=== PATIENT | female | born 1990 | race Caucasian/White ===

== ENCOUNTER 2020-02-09 11:49 | Emergency (ER) | payer OTHER, MEDICAID ==
[2020-02-09 12:15] VITALS: BP 132/91
--- NOTE | 2020-02-09 12:52 | XRAY Report ---
PROCEDURE: Ankle 3 View LT INDICATIONS: swelling TECHNIQUE: 3 views of the ankle were acquired. COMPARISON: None FINDINGS: Bones: No fractures or dislocations. Ankle mortise is normally aligned. No suspicious bony lesions . Soft tissues: No tibiotalar joint effusion. Achilles tendon appears normal. Mild ankle soft tissue swelling is seen. IMPRESSION: No acute ankle fracture or dislocation. Mild ankle soft tissue swelling. Ankle mortise i s congruent. Reviewed by: Francesco Oseguera MD on 02/09/2020 12:50 PM PDT Approved by: Francesco Oseguera MD on 02/09/2020 12:50 PM PDT Station ID: [id number]
--- NOTE | 2020-02-09 14:21 | ED Physician Documentation ---
PD HPI LOWER EXT INJURY - Stated complaint Stated Complaint: LT FOOT INJ - Chief complaint Chief Complaint: Ext Problem - History obtained from History obtained from: Patient - History of Present Illness PD HPI LOW EXT INJURY LOCATION: Left, Foot Type of injury: Twist Timing - onset: How many days ago (4) Timing - details: Abrupt onset Improved by: Rest, Immobilization Worsened by: Moving, Palpating Associated symptoms: No: Weakness, Numbness, Tingling, Swelling Similar symptoms before: Has not had sx before - Additional information Additional information: 29-year-old female presents the emergency department with chief complaint of acute left foot pain. Pain began 4 days ago. She reports that she was walking was turning a corner and felt her foot twist.Since then she has had pain mostly on the lateral edge of the foot. She has no swelling deformity or ecchymosis. No history of previous injury. Patient reports the pain feels better when she is wearing a shoe because she feels it compresses the injury. But is certainly worse after a day of walking. PD PAST MEDICAL HISTORY - Past Medical History Past Medical History: No - Past Surgical History Past Surgical History: No - Present Medications Home Medications: Ambulatory Orders Medication Instructions Recorded Confirmed Ibuprofen [Ibu] 600 mg PO Q8HR PRN #20 tablet 02/09/20 - Allergies Allergies/Adverse Reactions: Allergies Allergy/AdvReac Type Severity Reaction Status Date / Time No Known Drug Allergies Allergy Verified 02/09/20 12:15 - Social History Does the pt smoke?: No Smoking Status: Never smoker Does the pt drink ETOH?: Yes Does the pt have substance abuse?: No - Immunizations Immunizations are current?: Yes - POLST Patient has POLST: No PD ED PE NORMAL - General General: Alert and oriented X 3, No acute distress, Well developed/nourished - Extremities Extremities: No deformity, Normal ROM s pain, Other (Tenderness on the left lateral foot along the fourth and fifth metatarsals. No pain at the base of the fifth metatarsal. Full range of motion of ankle in all planes. Normal flexion extension inversion and eversion of foot and ankle.) - Neuro Neuro: Alert and oriented X 3, No motor deficit, No sensory deficit Results - Vitals Vitals: Vital Signs - 24 hr 02/09/20 12:12 Temperature 36.3 C L Heart Rate 97 Respiratory 18 Rate Blood Pressure 132/91 H O2 Saturation 100 Oxygen O2 Source Room air - Rads (name of study) left ankle: Radiology: Final report received (No acute ankle fracture dislocation. Mild soft tissue swelling, ankle mortise is congruent) left foot Radiology: Final report received (No acute fracture dislocation.) PD MEDICAL DECISION MAKING - ED course Complexity details: reviewed results, re-evaluated patient, d/w patient ED course: 21-year-old female presents the emergency department with chief complaint of left foot pain after a twisting injury about 4 days ago. She is able to bear partial weight but pain is worse through the day as she walks. - X-ray of both the ankle and the foot shows no acute pathology As patient reports that pain is better when she is wearing a tennis shoe, I suspected that she most likely has a sprain. - Give patient an Jose Elias wrap, walking boot as well as crutches to help with ambulation. Recommend NSAID medication. If pain and ability to bear weight not markedly better after 7 days she should return for repeat imaging to rule out occult fracture. Departure - Departure Disposition: 01 Home, Self Care Clinical Impression: Left foot pain Condition: Stable Instructions: ED Sprain Foot Follow-Up: Yanick Sterling MD [Primary Care Provider] - Prescriptions: Ibuprofen [Ibu] 600 mg PO Q8HR PRN #20 tablet PRN Reason: Pain Comments: Crystal, the x-ray of your foot and ankle do not show any broken bones. I suspect that what you have is most likely a sprain. Please wear the Jose Elias wrap when up out of bed. Use the walking boot to help protect your foot. If your pain is not markedly better in the next 7 to 10 days then please return to the emergency department or see your primary care physician for repeat imaging. In some cases subtle fractures are missed on the first x-rays.
--- NOTE | 2020-02-09 14:46 | XRAY Report ---
PROCEDURE: Foot 3 View LT INDICATIONS: pain in the 4/5 metatarsals TECHNIQUE: 3 views of the foot were acquired. COMPARISON: Concurrent x-ray of the left ankle. FINDINGS: Bones: No fractures or dislocations. No suspicious bony lesions. Soft tissues: No tibiotalar joint effusion. Achilles tendon appears normal. IMPRESSION: 1. No fracture or dislocation. Reviewed by: Trevin Marley MD on 02/09/2020 2:45 PM PDT Approved by: Trevin Marley MD on 02/09/2020 2:45 PM PDT Station ID: [id number]
== END 2020-02-09 15:51 | disposition home or self-care (01) ==
LOC: ED 11:49
DX: M79.672 Pain in left foot (principal)
CPT/HCPCS: 99281; 99284

== ENCOUNTER 2020-07-23 09:07 | Emergency (ER) | payer MEDICAID ==
[2020-07-23] MEDS ORDERED: KETOROLAC 30 MG/ML VIAL IVP STA (09:18)
[2020-07-23] MEDS ORDERED: SODIUM CHLORIDE 0.9% 1,000 ML IV STA (09:18)
--- NOTE | 2020-07-23 09:20 | ED Physician Documentation ---
PD HPI HEADACHE - Stated complaint Stated Complaint: CHEST PX, HEADACHE - History obtained from History obtained from: Patient - Additional information Additional information: She has a history of headaches but over the last 3 days has had a constant atypical headache for her in the left religious that is sharp and worse if she bends forward. Starting today it is associated with sharp central nonradiating chest pain, mild shortness of breath, and left-sided neck pain that does not change with rotation or flexion. She denies fever, cough, leg pain or pedal edema. She is not on control. Review of Systems Ten Systems: 10 systems reviewed and negative Constitutional: denies: Fever, Chills Nose: denies: Rhinorrhea / runny nose, Congestion Throat: denies: Sore throat Cardiac: reports: Chest pain / pressure. denies: Palpitations Respiratory: reports: Dyspnea. denies: Cough GI: denies: Abdominal Pain, Nausea, Vomiting PD PAST MEDICAL HISTORY - Past Surgical History Past Surgical History: No - Present Medications Home Medications: Ambulatory Orders Medication Instructions Recorded Confirmed HYDROcod/ACETAM 5/325 [Libby 5/325] 1 - 2 tab PO Q6H PRN #15 tablet 07/23/20 acetaZOLAMIDE [Acetazolamide] 125 mg PO BID #60 tablet 07/23/20 - Allergies Allergies/Adverse Reactions: Allergies Allergy/AdvReac Type Severity Reaction Status Date / Time No Known Drug Allergies Allergy Verified 07/23/20 09:16 - Social History Does the pt smoke?: No Smoking Status: Never smoker Does the pt drink ETOH?: Yes Does the pt have substance abuse?: No - Immunizations Immunizations are current?: Yes - POLST Patient has POLST: No PD ED PE NORMAL - Vitals Vital signs reviewed: Yes - General General: Alert and oriented X 3, No acute distress - HEENT HEENT: PERRL, EOMI, Ears normal, Moist mucous membranes, Pharynx benign - Neck Neck: Supple, no meningeal sign, No bony TTP - Cardiac Cardiac: RRR, No murmur - Respiratory Respiratory: No respiratory distress, Clear bilaterally - Abdomen Abdomen: Normal bowel sounds, Soft, Non tender - Back Back: No CVA TTP, No spinal TTP - Derm Derm: Normal color, Warm and dry - Extremities Extremities: No edema, No calf tenderness / cord - Neuro Neuro: Alert and oriented X 3, Normal speech Eye Opening: Spontaneous Motor: Obeys Commands Verbal: Oriented GCS Score: 15 Results - Vitals Vitals: Vital Signs - 24 hr 07/23/20 07/23/20 07/23/20 09:16 09:39 10:26 Temperature 37.5 C Heart Rate 105 H 91 75 Respiratory 19 16 14 Rate Blood Pressure 127/91 H 121/83 H 113/81 H O2 Saturation 100 99 100 07/23/20 07/23/20 11:51 13:12 Temperature 37 C 37 C Heart Rate 74 78 Respiratory 14 16 Rate Blood Pressure 122/80 125/91 H O2 Saturation 100 100 Oxygen O2 Source Room air - EKG (time done) 0917 Rate: Rate (enter#) (92) Rhythm: NSR [place]: Normal Intervals: Normal [place] QRS: Normal Ischemia: Normal ST segments Computer interpretation: Agree with computer - Labs Labs: Microbiology 07/23/20 12:50 CSF Culture - Preliminary Cerebral Spinal Fluid Laboratory Tests 07/23/20 07/23/20 07/23/20 09:30 09:30 09:30 WBC 9.8 RBC 5.07 Hgb 15.6 Hct 46.5 MCV 91.7 MCH 30.8 MCHC 33.5 RDW 12.6 Plt Count 241 MPV 10.0 Neut # (Auto) 6.6 Lymph # (Auto) 2.2 Cloud # (Auto) 0.6 Eos # (Auto) 0.3 Baso # (Auto) 0.1 Absolute Nucleated RBC 0.00 Nucleated RBC % 0.0 D-Dimer 228.4 Sodium 140 Potassium 4.0 Chloride 105 Carbon Dioxide 24 Anion Gap 11.0 BUN 18 Creatinine 0.9 Estimated GFR (MDRD) 75 L Glucose 102 H Calcium 9.2 Total Bilirubin 0.6 AST 16 ALT 14 Alkaline Phosphatase 93 Troponin I High Sens Total Protein 7.5 Albumin 4.2 Globulin 3.3 Albumin/Globulin Ratio 1.3 Lipase 27 Urine Color Urine Clarity Urine pH Ur Specific [place] Urine Protein Urine Glucose (UA) Urine Ketones Urine Occult Blood Urine Nitrite Urine Bilirubin Urine Urobilinogen Ur Leukocyte Esterase Ur Microscopic Review Urine Culture Comments Urine HCG, Qual CSF Color CSF Clarity Xanthrochromic CSF WBC CSF RBC CSF Cell Count Tube # CSF Glucose CSF Total Protein 07/23/20 07/23/20 07/23/20 09:30 09:30 12:50 WBC RBC Hgb Hct MCV MCH MCHC RDW Plt Count MPV Neut # (Auto) Lymph # (Auto) Cloud # (Auto) Eos # (Auto) Baso # (Auto) Absolute Nucleated RBC Nucleated RBC % D-Dimer Sodium Potassium Chloride Carbon Dioxide Anion Gap BUN Creatinine Estimated GFR (MDRD) Glucose Calcium Total Bilirubin AST ALT Alkaline Phosphatase Troponin I High Sens < 2.3 L Total Protein Albumin Globulin Albumin/Globulin Ratio Lipase Urine Color YELLOW Urine Clarity CLEAR Urine pH 6.0 Ur Specific [place] 1.025 Urine Protein NEGATIVE Urine Glucose (UA) NEGATIVE Urine Ketones NEGATIVE Urine Occult Blood NEGATIVE Urine Nitrite NEGATIVE Urine Bilirubin NEGATIVE Urine Urobilinogen 0.2 (NORMAL) Ur Leukocyte Esterase NEGATIVE Ur Microscopic Review NOT INDICATED Urine Culture Comments NOT INDICATED Urine HCG, Qual NEGATIVE CSF Color CSF Clarity Xanthrochromic CSF WBC CSF RBC CSF Cell Count Tube # CSF Glucose CSF Total Protein 27 07/23/20 12:50 WBC RBC Hgb Hct MCV MCH MCHC RDW Plt Count MPV Neut # (Auto) Lymph # (Auto) Cloud # (Auto) Eos # (Auto) Baso # (Auto) Absolute Nucleated RBC Nucleated RBC % D-Dimer Sodium Potassium Chloride Carbon Dioxide Anion Gap BUN Creatinine Estimated GFR (MDRD) Glucose Calcium Total Bilirubin AST ALT Alkaline Phosphatase Troponin I High Sens Total Protein Albumin Globulin Albumin/Globulin Ratio Lipase Urine Color Urine Clarity Urine pH Ur Specific [place] Urine Protein Urine Glucose (UA) Urine Ketones Urine Occult Blood Urine Nitrite Urine Bilirubin Urine Urobilinogen Ur Leukocyte Esterase Ur Microscopic Review Urine Culture Comments Urine HCG, Qual CSF Color COLORLESS CSF Clarity CLEAR Xanthrochromic ABSENT CSF WBC 0 CSF RBC 8 H CSF Cell Count Tube # CSF TUBE# 3 CSF Glucose 56 CSF Total Protein Procedures - Lumbar Puncture Position: Laying left side Location: L3-L4 Anesthesia: Local lidocaine CSF: Clear Pressures: Opening Pressure (26 cm h2O) Other: Sterile prep and drape, Patient tolerated well PD MEDICAL DECISION MAKING - ED course ED course: 29-year-old woman with headache syndrome, atypical for her, the association with bending forward and her body habitus would be suggestive of intracranial hypertension. That said the differential diagnosis would also include migraine syndrome, tension headache. Now the association with chest pain and trouble breathing would be concerning for PE especially in the setting of some tachycardia at rest. Although she has no other risk factors for that. D-dimer subsequently negative, will image the head and neck. Consider LP based on results. CTA of head and neck were negative. I did do an LP, the opening pressure was 26. Case discussed by phone with Dr. Miller who feels it is unlikely to be intracranial hypertension but feels like a low-dose of Diamox, 125 mg twice daily and follow-up with ophthalmology as appropriate. Departure - Departure Disposition: 01 Home, Self Care Clinical Impression: Headache Qualifiers: Headache type: unspecified Headache chronicity pattern: acute headache Intractability: not intractable Qualified Code(s): R51.9 - Headache, unspecified Condition: Good Record reviewed to determine appropriate education?: Yes Instructions: ED Cephalgia Unspecified Follow-Up: Barrie Ojeda MD [Provider Admit Priv/Credential] - Tanja Cha MD [Physician No Access] - Prescriptions: acetaZOLAMIDE [Acetazolamide] 125 mg PO BID #60 tablet HYDROcod/ACETAM 5/325 [Libby 5/325] 1 - 2 tab PO Q6H PRN #15 tablet PRN Reason: Pain Comments: Return for new or worsening symptoms. Follow-up with the supply cataloguer for dilated funduscopic examination, if they feel that you have papilledema they can refer you to the neurologist. Your opening pressure today was 26 on your lumbar puncture which was slightly high.
[2020-07-23 09:41] LABS: BILIRUBIN,URINE NEGATIVE (NEGATIVE); GLUCOSE, URINE (UA) NEGATIVE (NEGATIVE); KETONES,URINE (UA) NEGATIVE (NEGATIVE); LEUKOCYTE ESTERASE, URINE NEGATIVE (NEGATIVE); NITRITE,URINE NEGATIVE (NEGATIVE); OCCULT BLOOD,URINE NEGATIVE (NEGATIVE); PROTEIN,URINE NEGATIVE (NEGATIVE); UROBILINOGEN,URINE 0.2 (NORMAL) E.U./dL (NORMAL)
[2020-07-23 09:43] LABS: CLARITY,URINE CLEAR (CLEAR); HCG UR QUAL NEGATIVE
[2020-07-23 09:52] LABS: BASOPHILS # (AUTO) 0.1 10^3/uL (0.0-0.1); BASOPHILS % (AUTO) 0.6 %; EOSINOPHILS # (AUTO) 0.3 10^3/uL (0.0-0.7); EOSINOPHILS % (AUTO) 2.6 %; HGB - HEMOGLOBIN 15.6 g/dL (12.0-16.0); LYMPHOCYTES # (AUTO) 2.2 10^3/uL (1.5-3.5); LYMPHOCYTES % (AUTO) 22.2 %; MEAN CORPUSCULAR HEMOGLOBIN 30.8 pg (27.0-31.0); MEAN CORPUSCULAR HGB CONC 33.5 g/dL (32.0-36.0); MEAN CORPUSCULAR VOLUME 91.7 fL (81.0-99.0); MONOCYTES # (AUTO) 0.6 10^3/uL (0.0-1.0); MONOCYTES % (AUTO) 5.6 %; NEUTROPHILS # (AUTO) 6.6 10^3/uL (1.5-6.6); NEUTROPHILS % (AUTO) 67.8 %; PLT - PLATELET COUNT 241 10^3/uL (130-450); RED BLOOD COUNT 5.07 10^6/uL (4.20-5.40); RED CELL DISTRIBUTION WIDTH 12.6 % (12.0-15.0); WHITE BLOOD COUNT 9.8 x10^3/uL (4.8-10.8)
[2020-07-23] MEDS ORDERED: HYDROmorphone 1 MG/ML CARPUJECT IVP STA (10:20)
[2020-07-23] MEDS ORDERED: IOVERSOL 320 100 ML VIAL IVP ONE ×2 (10:28→15:18)
[2020-07-23 11:00] LABS: ALBUMIN 4.2 g/dL (3.2-5.5); ALBUMIN/GLOBULIN RATIO 1.3 (1.0-2.2); BILIRUBIN,TOTAL 0.6 mg/dL (0.2-1.0); CALCIUM 9.2 mg/dL (8.5-10.3); CREATININE 0.9 mg/dL (0.4-1.0); TOTAL PROTEIN 7.5 g/dL (6.7-8.2)
[2020-07-23] MEDS ORDERED: ONDANSETRON 4 MG/2 ML VIAL IVP STA (12:06)
--- NOTE | 2020-07-23 12:29 | CT Report ---
PROCEDURE: ANGIO HEAD W/WO INDICATIONS: Headache and left neck pain CONTRAST: IV CONTRAST: Optiray 320 ml: 80 PO CONTRAST: *NO PO CONTRAST TECHNIQUE: Precontrast 4.5 mm thick angled axial sections acquired from the foramen magnum to the vertex. Afte r the administration of intravenous contrast, 1 mm thick sections acquired through the [place] of [place] is. Postcontrast 4.5 mm thick sections then re-acquired from the foramen magnum to the vertex. 3-di mensional gfanmon-ztrkddlqz-lgvfprixhj (MIP) and/or volume rendering reformats were acquired of the c entral intracranial vasculature. For radiation dose reduction, the following was used: automated ex posure control, adjustment of mA and/or kV according to patient size. COMPARISON: None FINDINGS: Image quality: Excellent. Anterior circulation: Intracranial internal carotid arteries are normal in size and flow. The flow within the paired anterior cerebral arteries is normal and symmetric. The flow within the middle cer ebral arteries is normal and symmetric. The anterior communicating artery is seen. No aneurysms are seen. Posterior circulation: Visualized portions of the vertebral arteries demonstrate normal caliber, and join to form a normal appearing basilar artery. Flow within the posterior cerebral arteries is norm al and symmetric. No aneurysms are seen. CSF spaces: Ventricles are normal in size and shape. Basal cisterns are patent. No extra-axial flu id collections. Brain: No midline shift. No intracranial bleeds or masses. Ljoa-white matter interface appears int act. Skull and face: Calvarium and facial bones appear intact, without suspicious lesions. Sinuses: Visualized sinuses and mastoids are clear. IMPRESSION: No acute intracranial finding. No intracranial aneurysm, vascular malformation, or hemodynamically significant arterial stenosis. Reviewed by: Ghassan Victoria MD on 07/23/2020 11:27 AM [facility] Approved by: Ghassan Victoria MD on 07/23/2020 11:27 AM [facility] Station ID: [id number]
--- NOTE | 2020-07-23 12:32 | CT Report ---
PROCEDURE: ANGIO NECK W INDICATIONS: Head/L neck pain CONTRAST: IV CONTRAST: Optiray 320 ml: 80 PO CONTRAST: *NO PO CONTRAST TECHNIQUE: After the administration of intravenous contrast, 1.5 mm axial sections acquired from the aortic arch to the [place] of [place]. Coronal 3-D maximum intensity projection (MIP) and/or volume rendering ref ormats were then performed. For radiation dose reduction, the following was used: automated exposur e control, adjustment of mA and/or kV according to patient size. COMPARISON: None. FINDINGS: Image quality: Excellent. Carotid system: The great vessels demonstrate a conventional anatomy as they arise from the aortic a [facility]. The origins of the common carotid arteries appear patent. The common carotid arteries demonstr ate normal calibers and courses. The bifurcation regions appear normal bilaterally. The internal ca rotid arteries demonstrate normal caliber and course. Posterior circulation: The origins of the vertebral arteries appear patent. The more superior porti ons of the vertebral arteries demonstrate normal course and caliber. They join to form a normal appe aring basilar artery. Soft tissues: Visualized neck soft tissues demonstrate no suspicious abnormalities. The thyroid gla nd is normal in size. Bones: No suspicious bony lesions. Visualized cervical spine appears normally aligned. IMPRESSION: No significant abnormality demonstrated. The estimate of stenosis included in the report of the imaging study was calculated using the NASCET method Reviewed by: Ghassan Victoria MD on 07/23/2020 11:30 AM [facility] Approved by: Ghassan Victoria MD on 07/23/2020 11:30 AM [facility] Station ID: [id number]
[2020-07-23 13:27] LABS: CSF - GLUCOSE 56 mg/dL (45-70)
[2020-07-23 13:32] LABS: CLARITY,CSF CLEAR (CLEAR); COLOR,CSF COLORLESS (COLORLESS); CSF TUBE # CSF TUBE# 3; CSF XANTHOCHROMIA ABSENT (ABSENT); RED BLOOD CELL,CSF 8 /mm^3 (0-1); WHITE BLOOD CELL,CSF 0 /mm^3 (0-5)
[2020-07-23 13:55] VITALS: BP 113/76
== END 2020-07-23 14:08 | disposition home or self-care (01) ==
LOC: ED 09:07
DX: G44.89 Other headache syndrome (principal); R07.9 Chest pain, unspecified; R06.02 Shortness of breath; M54.2 Cervicalgia
CPT/HCPCS: 36415; 62270; 70496; 70498; 80053; 81003; 81025; 82945; 83690; 84157; 84484; 85025; 85379; 87070; 87205; 89051; 93005; 96374; 96375; 99284; 99285; J1170; Q9967; 81001; 87086

== ENCOUNTER 2020-09-11 09:20 | Emergency (ER) | payer MEDICAID ==
--- NOTE | 2020-09-11 09:26 | ED Physician Documentation ---
PD HPI ABD PAIN - Stated complaint Stated Complaint: ABD PX - History obtained from History obtained from: Patient - History of Present Illness Timing - onset: Last night Timing - duration: Days (1) Timing - details: Gradual onset, Still present Quality: Cramping, Aching, Pain Location: RLQ, Suprapubic, LLQ (subsequently) Radiation: Lower back. No: Right flank Improved by: Laying still Worsened by: Moving, Position (lying flat), Palpation (lower abd) Associated symptoms: Nausea, Diarrhea (soft stool movement this morning.), Loss of appetite. No: Fever, Vomiting, Dysuria, Dizzy Similar symptoms before: Has not had sx before Recently seen: Not recently seen Review of Systems Constitutional: denies: Fever, Chills Nose: denies: Rhinorrhea / runny nose, Congestion Throat: denies: Sore throat Respiratory: denies: Cough GI: reports: Abdominal Pain, Nausea. denies: Vomiting, Constipation, Bloody / black stool : denies: Dysuria, Frequency, Discharge Skin: denies: Rash, Lesions Neurologic: denies: Generalized weakness, Near syncope, Headache PD PAST MEDICAL HISTORY - Past Medical History Cardiovascular: Other Respiratory: None Neuro: Headaches Endocrine/Autoimmune: None GI: None DIESEL MECHANIC APPRENTICE: None : None HEENT: None Psych: None Musculoskeletal: None Derm: None - Past Surgical History Past Surgical History: No General: Cholecystectomy - Present Medications Home Medications: Ambulatory Orders Medication Instructions Recorded Confirmed Ibuprofen [Motrin] 600 mg PO TID PRN #25 tab 09/11/20 Ondansetron Odt [Zofran] 4 mg TL Q6H PRN #10 tablet 09/11/20 Oxycodone HCl/Acetaminophen 1 each PO Q6H PRN #14 tablet 09/11/20 [Percocet 5-325 mg Tablet] - Allergies Allergies/Adverse Reactions: Allergies Allergy/AdvReac Type Severity Reaction Status Date / Time No Known Drug Allergies Allergy Verified 09/11/20 09:30 - Social History Does the pt smoke?: No Smoking Status: Never smoker Does the pt drink ETOH?: Yes Does the pt have substance abuse?: No - Immunizations Immunizations are current?: Yes - POLST Patient has POLST: No PD ED PE NORMAL - Vitals Vital signs reviewed: Yes - General General: Alert and oriented X 3, Well developed/nourished, Other (appears in pain/ very uncomfortable. ) - Neck Neck: Supple, no meningeal sign, No adenopathy - Cardiac Cardiac: RRR, No murmur - Respiratory Respiratory: Clear bilaterally - Abdomen Abdomen: Soft, Non distended, No organomegaly, Other (significant RLQ and suprapubic tenderness with guarding and percussion tenderness. referred tenderness from LLQ to right. Some percussion tender LLQ as well. Upper abd not tender. ) - Female Female : Deferred - Rectal Rectal: Deferred - Back Back: No CVA TTP - Derm Derm: Normal color, Warm and dry - Extremities Extremities: No tenderness to palpate, Normal ROM s pain - Neuro Neuro: Alert and oriented X 3, No motor deficit, Normal speech Results - Vitals Vitals: Vital Signs - 24 hr 09/11/20 09/11/20 09/11/20 09:27 09:48 10:02 Temperature 36.2 C L Heart Rate 93 98 95 Respiratory 18 16 16 Rate Blood Pressure 149/89 H 124/90 H 123/87 H O2 Saturation 99 98 98 09/11/20 09/11/20 09/11/20 11:22 13:18 13:50 Temperature 36.9 C Heart Rate 97 89 85 Respiratory 20 18 16 Rate Blood Pressure 127/93 H 115/73 110/81 H O2 Saturation 100 99 100 Oxygen O2 Source Room air - Labs Labs: Laboratory Tests 09/11/20 09/11/20 09/11/20 09:37 10:00 10:18 WBC 11.6 H RBC 4.86 Hgb 15.0 Hct 44.4 MCV 91.4 MCH 30.9 MCHC 33.8 RDW 12.3 Plt Count 241 MPV 9.5 Neut # (Auto) 7.7 H Lymph # (Auto) 2.5 [place] # (Auto) 0.7 Eos # (Auto) 0.4 Baso # (Auto) 0.1 Absolute Nucleated RBC 0.00 Nucleated RBC % 0.0 Sodium 139 Potassium 4.3 Chloride 105 Carbon Dioxide 23 Anion Gap 11.0 BUN 16 Creatinine 0.9 Estimated GFR (MDRD) 74 L Glucose 102 H Calcium 8.3 L Total Bilirubin 0.3 AST 17 ALT 14 Alkaline Phosphatase 86 Total Protein 6.5 L Albumin 3.4 Globulin 3.1 Albumin/Globulin Ratio 1.1 Lipase 30 Urine Color YELLOW Urine Clarity CLEAR Urine pH 6.5 Ur Specific Steele 1.020 Urine Protein NEGATIVE Urine Glucose (UA) NEGATIVE Urine Ketones NEGATIVE Urine Occult Blood NEGATIVE Urine Nitrite NEGATIVE Urine Bilirubin NEGATIVE Urine Urobilinogen 0.2 (NORMAL) Ur Leukocyte Esterase NEGATIVE Ur Microscopic Review NOT INDICATED Urine Culture Comments NOT INDICATED Urine HCG, Qual NEGATIVE Nasal Adenovirus (PCR) Nasal B. parapertussis DNA (PCR) Nasal Coronavir 229E PCR Nasal Coronavir HKU1 PCR Nasal Coronavir NL63 PCR Nasal Coronavir OC43 PCR Nasal Enterovir/Rhinovir PCR Nasal Influenza B PCR Nasal Influenza A PCR Nasal Parainfluen 1 PCR Nasal Parainfluen 2 PCR Nasal Parainfluen 3 PCR Nasal Parainfluen 4 PCR Nasal RSV (PCR) Nasal B.pertussis DNA PCR Nasal C.pneumoniae (PCR) Jun Human Metapneumo PCR Nasal M.pneumoniae (PCR) Nasal SARS-CoV-2 (PCR) 09/11/20 11:09 WBC RBC Hgb Hct MCV MCH MCHC RDW Plt Count MPV Neut # (Auto) Lymph # (Auto) [place] # (Auto) Eos # (Auto) Baso # (Auto) Absolute Nucleated RBC Nucleated RBC % Sodium Potassium Chloride Carbon Dioxide Anion Gap BUN Creatinine Estimated GFR (MDRD) Glucose Calcium Total Bilirubin AST ALT Alkaline Phosphatase Total Protein Albumin Globulin Albumin/Globulin Ratio Lipase Urine Color Urine Clarity Urine pH Ur Specific Steele Urine Protein Urine Glucose (UA) Urine Ketones Urine Occult Blood Urine Nitrite Urine Bilirubin Urine Urobilinogen Ur Leukocyte Esterase Ur Microscopic Review Urine Culture Comments Urine HCG, Qual Nasal Adenovirus (PCR) NOT DETECTED Nasal B. parapertussis DNA (PCR) NOT DETECTED Nasal Coronavir 229E PCR NOT DETECTED Nasal Coronavir HKU1 PCR NOT DETECTED Nasal Coronavir NL63 PCR NOT DETECTED Nasal Coronavir OC43 PCR NOT DETECTED Nasal Enterovir/Rhinovir PCR NOT DETECTED Nasal Influenza B PCR NOT DETECTED Nasal Influenza A PCR NOT DETECTED Nasal Parainfluen 1 PCR NOT DETECTED Nasal Parainfluen 2 PCR NOT DETECTED Nasal Parainfluen 3 PCR NOT DETECTED Nasal Parainfluen 4 PCR NOT DETECTED Nasal RSV (PCR) NOT DETECTED Nasal B.pertussis DNA PCR NOT DETECTED Nasal C.pneumoniae (PCR) NOT DETECTED Jun Human Metapneumo PCR NOT DETECTED Nasal M.pneumoniae (PCR) NOT DETECTED Nasal SARS-CoV-2 (PCR) NOT DETECTED - Rads (name of study) abd CT Radiology: Prelim report reviewed (normal appendix. 3.5 cm right ovarian cyst with contrast extravasate locally, signifying active bleeding. ), See rad report pelvic U/S Radiology: Prelim report reviewed (ovarian cyst with some free fluid in pelvis and back of uterus. Normal blood flow to the ovary. ), See rad report PD MEDICAL DECISION MAKING - ED course Complexity details: reviewed results (CT showing 3.5 cm right ovarian cyst with contrast extravasation around the ovary. No free fluid/blood noted. ), re- evaluated patient (having peritoneal signs and tenderness lower abd so presume some element of free fluid/blood. Talked with Dr. Jaimes, review consultant, who asks for U/S as well. This showed mild amount free fluid. Called DIESEL MECHANIC APPRENTICE back and is not enough to need surgery. Treat pain and recheck in office/ER.), considered differential (RLQ pain with some local peritoneal signs. Consider appy, ovarian cyst, torsion, kidney stone, UTI, among other things. ), d/w patient ED course: COVID test done in consideration of potential surgery. IV fluids pain meds given with moderate improvement in pain. Repeat doses given. Patient says she is comfortable enough at this point to go home (this is after CT and U/S results and consult with DIESEL MECHANIC APPRENTICE). Departure - Departure Disposition: 01 Home, Self Care Clinical Impression: Hemorrhagic cyst of right ovary, RLQ abdominal pain Condition: Stable Record reviewed to determine appropriate education?: Yes Instructions: ED Cyst Ovarian Follow-Up: Marsha Jaimes MD [Provider Admit Priv/Credential] - Prescriptions: Ibuprofen [Motrin] 600 mg PO TID PRN #25 tab PRN Reason: Pain Oxycodone HCl/Acetaminophen [Percocet 5-325 mg Tablet] 1 each PO Q6H PRN #14 tablet PRN Reason: pain Ondansetron Odt [Zofran] 4 mg TL Q6H PRN #10 tablet PRN Reason: Nausea / Vomiting Comments: Rest at home today. Activity as tolerated tomorrow and thereafter. You do have a cyst on the right ovary that is bleeding a small amount locally. Your pain is coming from the cyst as well as the irritation of the blood in the pelvic cavity. This should taper down and improve in the next day or 2 assuming the bleeding stops as would typically be the case. Use ondansetron if needed for nausea and ibuprofen 3 times a day for pain and inflammation. To that add Tylenol or oxycodone as needed for pain. Recheck if not improved well over the next 1 to 2 days with the LEASING ASSISTANT office or back in the ER. Return to the ER if worsening symptoms or any feeling of lightheadedness, worsening pain, repetitive vomiting or other concerns. Discharge Date/Time: 09/11/20 14:01
[2020-09-11] MEDS ORDERED: HYDROmorphone 1 MG/ML CARPUJECT IVP STA ×3 (09:53→13:15)
[2020-09-11] MEDS ORDERED: ONDANSETRON 4 MG/2 ML VIAL IVP STA (09:53)
[2020-09-11] MEDS ORDERED: SODIUM CHLORIDE 0.9% 1,000 ML IV STA ×2 (09:53→11:08)
[2020-09-11 09:56] LABS: BILIRUBIN,URINE NEGATIVE (NEGATIVE); GLUCOSE, URINE (UA) NEGATIVE (NEGATIVE); KETONES,URINE (UA) NEGATIVE (NEGATIVE); LEUKOCYTE ESTERASE, URINE NEGATIVE (NEGATIVE); NITRITE,URINE NEGATIVE (NEGATIVE); OCCULT BLOOD,URINE NEGATIVE (NEGATIVE); PH,URINE 6.5 PH (5.0-7.5); PROTEIN,URINE NEGATIVE (NEGATIVE); UROBILINOGEN,URINE 0.2 (NORMAL) E.U./dL (NORMAL)
[2020-09-11 09:57] LABS: CLARITY,URINE CLEAR (CLEAR)
[2020-09-11 10:00] LABS: HCG UR QUAL NEGATIVE
[2020-09-11 10:07] LABS: BASOPHILS # (AUTO) 0.1 10^3/uL (0.0-0.1); BASOPHILS % (AUTO) 0.5 %; EOSINOPHILS # (AUTO) 0.4 10^3/uL (0.0-0.7); EOSINOPHILS % (AUTO) 3.4 %; LYMPHOCYTES # (AUTO) 2.5 10^3/uL (1.5-3.5); LYMPHOCYTES % (AUTO) 21.3 %; MEAN CORPUSCULAR HEMOGLOBIN 30.9 pg (27.0-31.0); MEAN CORPUSCULAR HGB CONC 33.8 g/dL (32.0-36.0); MEAN CORPUSCULAR VOLUME 91.4 fL (81.0-99.0); MEAN PLATELET VOLUME 9.5 fL (7.9-10.8); MONOCYTES # (AUTO) 0.7 10^3/uL (0.0-1.0); MONOCYTES % (AUTO) 6.2 %; NEUTROPHILS # (AUTO) 7.7 10^3/uL (1.5-6.6); NEUTROPHILS % (AUTO) 66.6 %; PLT - PLATELET COUNT 241 10^3/uL (130-450); RED BLOOD COUNT 4.86 10^6/uL (4.20-5.40); RED CELL DISTRIBUTION WIDTH 12.3 % (12.0-15.0); WHITE BLOOD COUNT 11.6 x10^3/uL (4.8-10.8)
[2020-09-11] MEDS ORDERED: IOVERSOL 320 100 ML VIAL IVP ONE ×2 (10:15→11:52)
[2020-09-11 10:40] LABS: ALBUMIN 3.4 g/dL (3.2-5.5); ALBUMIN/GLOBULIN RATIO 1.1 (1.0-2.2); BILIRUBIN,TOTAL 0.3 mg/dL (0.2-1.0); CALCIUM 8.3 mg/dL (8.5-10.3); CREATININE 0.9 mg/dL (0.4-1.0); TOTAL PROTEIN 6.5 g/dL (6.7-8.2)
--- NOTE | 2020-09-11 11:19 | CT Report ---
PROCEDURE: Abdomen/Pelvis W INDICATIONS: RLQ pain, consider appendix CONTRAST: IV CONTRAST: Optiray 320 ml: 100 PO CONTRAST: *NO PO CONTRAST TECHNIQUE: After the administration of intravenous contrast, 5 mm thick sections acquired from the diaphragms to the symphysis. 5 mm thick coronal and sagittal reformats were acquired. For radiation dose reducti on, the following was used: automated exposure control, adjustment of mA and/or kV according to joann ent size. COMPARISON: None. FINDINGS: Image quality: Excellent. ABDOMEN: Lung bases: Lung bases are clear. Heart size is normal. Solid organs: Liver and spleen are normal in size and enhancement. Gallbladder is not identified, p resumably status post cholecystectomy. Biliary system is non dilated. Pancreas enhances normally. No adrenal nodules. Kidneys demonstrate normal size and enhancement, without hydronephrosis. Peritoneum and bowel: The appendix is normal in size without abnormal fluid distention or adjacent in flammatory change. Remaining bowel is normal in caliber and unremarkable. No free air. Nodes and vessels: No retroperitoneal or mesenteric adenopathy by size criteria. Aorta and inferior vena cava are normal in size. Miscellaneous: No ventral hernias. PELVIS: Genitourinary: Fluid density lesion in the right ovary measuring 3.5 cm with a near contrast density focus, presumably representing a hemorrhagic ovarian cyst. The left ovary and uterus are within mary jo l limits. Bladder is unremarkable. No ventral enlarged pelvic or inguinal lymph node. Miscellaneous: No inguinal or femoral hernia demonstrated. Bones: No suspicious lytic or blastic osseous lesion. IMPRESSION: Normal appendix with no findings of appendicitis. Probable hemorrhagic right ovarian cyst which may represent a source of right lower quadrant abdomina l/pelvic pain. Pelvic ultrasound could be considered for further evaluation if clinically warranted. Reviewed by: Ghassan Victoria MD on 09/11/2020 11:18 AM PST Approved by: Ghassan Victoria MD on 09/11/2020 11:18 AM PST Station ID: [id number]
[2020-09-11 12:08] LABS: C. PNEUMONIAE- RESP PCR PANEL NOT DETECTED
[2020-09-11] MEDS ORDERED: KETOROLAC 30 MG/ML VIAL IVP STA (13:15)
[2020-09-11 13:52] VITALS: BP 110/81
--- NOTE | 2020-09-11 14:20 | Ultrasound Report ---
PROCEDURE: Pelvic w/Transvag+Doppler Ltd INDICATIONS: pelvic pain; cyst on CT with some dye extravasatio TECHNIQUE: Real-time scanning was performed of the pelvic organs, with image documentation. Additional endovagi nal scanning was necessary due to incomplete visualization of the adnexal and endometrial structures by transabdominal scanning. COMPARISON: CT abdomen/pelvis 09/11/2019 FINDINGS: Mild to moderate free fluid is seen in the pelvic cul-de-sac. Uterus: Uterus is upper limits of normal in size at 9.8 x 4.1 x 5.2 cm. The endometrium measures 10 mm in combined thickness. A few subendometrial cysts are noted, which are nonspecific. The myometri um is mildly heterogeneous. Ovaries: The right ovary measures 4.7 x 3.7 x 3.2 cm (29 mL). The left ovary measures 3.5 x 2.2 x 2. 9 cm (12 mL). A right ovarian cyst is seen measuring 2.7 x 1.8 x 2.3 cm with a small amount of debris or thrombus at the anterior aspect of the cyst. Arterial and venous Doppler flow is seen in each ova ry, which does not exclude intermittent ovarian torsion. IMPRESSION: 1. Right ovarian complicated cyst measures up to 2.7 cm in diameter with debris or thrombus at the a nterior aspect of the cyst, possibly hemorrhagic in nature. Consider follow-up pelvic ultrasound in 6 -12 weeks for further evaluation. 2. Small amount of free fluid in the pelvis is most likely physiologic. Reviewed by: Faustino Weaver MD on 09/11/2020 2:19 PM PST Approved by: Faustino Weaver MD on 09/11/2020 2:19 PM PST Station ID: [id number]
== END 2020-09-11 14:01 | disposition home or self-care (01) ==
LOC: ED 09:20
DX: N83.201 Unspecified ovarian cyst, right side (principal); Z20.822 Contact with and (suspected) exposure to COVID-19
CPT/HCPCS: 0202U; 36415; 74177; 76830; 76856; 80053; 81003; 81025; 83690; 85025; 93976; 96374; 96375; 96376; 99284; J1170; Q9967; 81001; 87086

== ENCOUNTER 2020-12-29 22:38 | Emergency (ER) | payer MEDICAID ==
[2020-12-29 23:06] LABS: BASOPHILS # (AUTO) 0.1 10^3/uL (0.0-0.1); BASOPHILS % (AUTO) 0.5 %; EOSINOPHILS # (AUTO) 0.4 10^3/uL (0.0-0.7); HGB - HEMOGLOBIN 14.4 g/dL (12.0-16.0); LYMPHOCYTES # (AUTO) 3.9 10^3/uL (1.5-3.5); LYMPHOCYTES % (AUTO) 26.2 %; MEAN CORPUSCULAR HEMOGLOBIN 30.1 pg (27.0-31.0); MEAN CORPUSCULAR HGB CONC 33.5 g/dL (32.0-36.0); MEAN PLATELET VOLUME 9.8 fL (7.9-10.8); MONOCYTES # (AUTO) 0.9 10^3/uL (0.0-1.0); MONOCYTES % (AUTO) 5.9 %; NEUTROPHILS # (AUTO) 9.4 10^3/uL (1.5-6.6); NEUTROPHILS % (AUTO) 63.7 %; PLT - PLATELET COUNT 278 10^3/uL (130-450); RED BLOOD COUNT 4.78 10^6/uL (4.20-5.40); RED CELL DISTRIBUTION WIDTH 12.1 % (12.0-15.0); WHITE BLOOD COUNT 14.7 x10^3/uL (4.8-10.8)
[2020-12-29 23:14] LABS: BILIRUBIN,URINE NEGATIVE (NEGATIVE); GLUCOSE, URINE (UA) NEGATIVE (NEGATIVE); KETONES,URINE (UA) NEGATIVE (NEGATIVE); LEUKOCYTE ESTERASE, URINE NEGATIVE (NEGATIVE); NITRITE,URINE NEGATIVE (NEGATIVE); OCCULT BLOOD,URINE NEGATIVE (NEGATIVE); PH,URINE 6.5 PH (5.0-7.5); PROTEIN,URINE NEGATIVE (NEGATIVE); UROBILINOGEN,URINE 0.2 (NORMAL) E.U./dL (NORMAL)
[2020-12-29 23:17] LABS: CLARITY,URINE CLEAR (CLEAR); HCG UR QUAL NEGATIVE
[2020-12-29] MEDS ORDERED: SODIUM CHLORIDE 0.9% 1,000 ML IV STA (23:17)
[2020-12-29] MEDS ORDERED: KETOROLAC 30 MG/ML VIAL IVP STA (23:17)
[2020-12-29] MEDS ORDERED: ONDANSETRON 4 MG/2 ML VIAL IVP STA (23:17)
[2020-12-29 23:19] LABS: ALBUMIN 3.8 g/dL (3.2-5.5); ALBUMIN/GLOBULIN RATIO 1.1 (1.0-2.2); BILIRUBIN,TOTAL 0.6 mg/dL (0.2-1.0); CREATININE 0.9 mg/dL (0.4-1.0); POTASSIUM 3.6 mmol/L (3.5-5.0); TOTAL PROTEIN 7.3 g/dL (6.7-8.2)
--- NOTE | 2020-12-29 23:20 | ED Physician Documentation ---
PD HPI ABD PAIN - Stated complaint Stated Complaint: ABD PX, NAUSEA, CHILLS - Chief complaint Chief Complaint: Abd Pain - History obtained from History obtained from: Patient - History of Present Illness Timing - onset: Yesterday Timing - duration: Days (2) Timing - details: Gradual onset, Still present Quality: Sharp, Pain Location: RLQ Radiation: Right flank Improved by: Laying still Worsened by: Moving, Position, Palpation Associated symptoms: Nausea, Loss of appetite. No: Vomiting, Diarrhea Similar symptoms before: Diagnosis (hemorrhagic cyst) Recently seen: Not recently seen - Additional information Additional information: 30-year-old female with a history of a hemorrhagic right ovarian cyst has had resolution of the symptoms from that back in September and today she is complaining of pain that began yesterday at a low level in the right lower quadrant and she has developed nausea. Today she was able only to eat several bites and became full. She has not vomited. She has chills. Her pain is progressively become worse and she is having a difficult time standing up and walking and has pain with movement and palpation. She has pain referred to the right lower quadrant. Review of Systems Constitutional: reports: Chills. denies: Fever Eyes: denies: Decreased vision Ears: denies: Ear pain Nose: denies: Congestion Throat: denies: Sore throat Cardiac: denies: Chest pain / pressure, Palpitations Respiratory: denies: Dyspnea, Cough GI: reports: Abdominal Pain, Nausea. denies: Vomiting, Constipation, Diarrhea : denies: Dysuria, Frequency Skin: denies: Rash Musculoskeletal: reports: Back pain. denies: Neck pain, Extremity pain Neurologic: denies: Generalized weakness, Focal weakness, Numbness PD PAST MEDICAL HISTORY - Past Medical History Past Medical History: Yes Cardiovascular: Other Respiratory: None Neuro: Headaches Endocrine/Autoimmune: None GI: None BILLING ASSISTANT: None : None HEENT: None Psych: None Musculoskeletal: None Derm: None - Past Surgical History Past Surgical History: Yes General: Cholecystectomy - Present Medications Home Medications: Ambulatory Orders Medication Instructions Recorded Confirmed HYDROcod/ACETAM 5/325 [Sargent 5/325] 1 - 2 tablet PO Q6H PRN #14 tablet 12/30/20 - Allergies Allergies/Adverse Reactions: Allergies Allergy/AdvReac Type Severity Reaction Status Date / Time No Known Drug Allergies Allergy Verified 12/29/20 22:45 - Social History Does the pt smoke?: No Smoking Status: Never smoker Does the pt drink ETOH?: Yes Does the pt have substance abuse?: No - Immunizations Immunizations are current?: Yes - POLST Patient has POLST: No PD ED PE NORMAL - Vitals Vital signs reviewed: Yes (Tachycardic and hypertensive) - General General: Alert and oriented X 3, Well developed/nourished, Other (30-year-old female appears to be in pain occasionally with moaning.) - HEENT HEENT: Atraumatic, PERRL, EOMI - Neck Neck: Supple, no meningeal sign - Cardiac Cardiac: RRR, No murmur - Respiratory Respiratory: No respiratory distress, Clear bilaterally - Abdomen Abdomen: Normal bowel sounds, Soft, Non distended, No organomegaly, Other (There is tenderness to the right lower quadrant to direct palpation without guarding. There is tenderness referred to the right lower quadrant with palpation of the left side of the abdomen and with shaking of the abdomen. There is no R or KL upper quadrant tenderness. No right flank tenderness. ) - Back Back: No CVA TTP, No spinal TTP - Derm Derm: Normal color, Warm and dry, No rash - Extremities Extremities: No deformity, No edema - Neuro Neuro: Alert and oriented X 3, orchestra teacher 2-12 intact, No motor deficit, No sensory deficit, Normal speech Eye Opening: Spontaneous Motor: Obeys Commands Verbal: Oriented GCS Score: 15 - Psych Psych: Normal mood, Normal affect Results - Vitals Vitals: Vital Signs - 24 hr 12/29/20 12/30/20 12/30/20 22:43 01:50 02:18 Temperature 36.3 C L 36.6 C Heart Rate 105 H 77 79 Respiratory 20 16 16 Rate Blood Pressure 146/101 H 125/79 133/91 H O2 Saturation 100 98 98 12/30/20 12/30/20 02:58 03:36 Temperature 36.5 C 36.4 C L Heart Rate 84 83 Respiratory 16 14 Rate Blood Pressure 113/78 124/90 H O2 Saturation 98 97 Oxygen O2 Source Room air - Labs Labs: Laboratory Tests 12/29/20 12/29/20 12/29/20 22:58 22:58 23:07 WBC 14.7 H RBC 4.78 Hgb 14.4 Hct 43.0 MCV 90.0 MCH 30.1 MCHC 33.5 RDW 12.1 Plt Count 278 MPV 9.8 Neut # (Auto) 9.4 H Lymph # (Auto) 3.9 [place] # (Auto) 0.9 Eos # (Auto) 0.4 Baso # (Auto) 0.1 Absolute Nucleated RBC 0.00 Nucleated RBC % 0.0 Sodium 139 Potassium 3.6 Chloride 106 Carbon Dioxide 23 Anion Gap 10.0 BUN 16 Creatinine 0.9 Estimated GFR (MDRD) 74 L Glucose 115 H Calcium 9.0 Total Bilirubin 0.6 AST 15 ALT 13 Alkaline Phosphatase 72 Total Protein 7.3 Albumin 3.8 Globulin 3.5 Albumin/Globulin Ratio 1.1 Lipase 32 Urine Color YELLOW Urine Clarity CLEAR Urine pH 6.5 Ur Specific [place] 1.020 Urine Protein NEGATIVE Urine Glucose (UA) NEGATIVE Urine Ketones NEGATIVE Urine Occult Blood NEGATIVE Urine Nitrite NEGATIVE Urine Bilirubin NEGATIVE Urine Urobilinogen 0.2 (NORMAL) Ur Leukocyte Esterase NEGATIVE Ur Microscopic Review NOT INDICATED Urine Culture Comments NOT INDICATED Urine HCG, Qual 12/29/20 23:07 WBC RBC Hgb Hct MCV MCH MCHC RDW Plt Count MPV Neut # (Auto) Lymph # (Auto) [place] # (Auto) Eos # (Auto) Baso # (Auto) Absolute Nucleated RBC Nucleated RBC % Sodium Potassium Chloride Carbon Dioxide Anion Gap BUN Creatinine Estimated GFR (MDRD) Glucose Calcium Total Bilirubin AST ALT Alkaline Phosphatase Total Protein Albumin Globulin Albumin/Globulin Ratio Lipase Urine Color Urine Clarity Urine pH Ur Specific [place] Urine Protein Urine Glucose (UA) Urine Ketones Urine Occult Blood Urine Nitrite Urine Bilirubin Urine Urobilinogen Ur Leukocyte Esterase Ur Microscopic Review Urine Culture Comments Urine HCG, Qual NEGATIVE - Rads (name of study) CT ab/pel with Radiology: Prelim report reviewed (Impression: No acute findings. The appendix is normal. Other incidental findings as above.), EMP read indepedently, See rad report pelvic u/s Radiology: Prelim report reviewed (Impression: 1. Unremarkable pelvic ultrasound with no evidence of ovarian torsion.), EMP read indepedently, See rad report Procedures - Bedside sono Bedside sono by EMP: With use of bedside ultrasound the right flank is imaged it is sonographically nontender and there is no evidence of hydronephrosis. PD MEDICAL DECISION MAKING - ED course Complexity details: reviewed results, re-evaluated patient, considered differential, d/w patient ED course: 30 y/o female with right Lower quadrant abdominal pain. Her exam is consistent with the possibility of appendicitis and a repeat CT scan of the abdomen pelvis is undertaken without evidence of abnormality. The patient had pain bad enough that she did not have improvement from the use of intravenous Toradol and required intravenous Dilaudid for pain control. I reconsidered the use of ultrasound and asked the medical technicians to image the pelvis which was an unremarkable study. There was no evidence of a cyst at this time. My concern for this patient is intermittent pelvic pain without findings on imaging and the possibility of endometriosis. The patient states that she has been told this previously. We will treat her with some pain medication and asked her to follow-up with BILLING ASSISTANT. Today there are no life-threatening abnormalities to the abdomen or pelvis. Departure - Departure Disposition: 01 Home, Self Care Clinical Impression: Pelvic pain Condition: Stable Instructions: ED Pelvic Pain [facility] Follow-Up: Yanick Sterling MD [Primary Care Provider] - [facility] [Provider Group] Prescriptions: HYDROcod/ACETAM 5/325 [Sargent 5/325] 1 - 2 tablet PO Q6H PRN #14 tablet PRN Reason: Pain Forms: Activity restrictions Discharge Date/Time: 12/30/20 03:46
[2020-12-29] MEDS ORDERED: IOVERSOL 320 100 ML VIAL IVP ONE ×2 (23:23→23:56)
[2020-12-29] MEDS ORDERED: KETOROLAC 60 MG/2 ML VIAL IM STA (23:34)
[2020-12-30] MEDS ORDERED: HYDROmorphone 1 MG/ML CARPUJECT IVP STA (00:50)
[2020-12-30 03:37] VITALS: BP 124/90
--- NOTE | 2020-12-30 06:54 | CT Report ---
PROCEDURE: Abdomen/Pelvis W INDICATIONS: RLQ pain with guarding CONTRAST: IV CONTRAST: Optiray 320 ml: 100 PO CONTRAST: *NO PO CONTRAST TECHNIQUE: After the administration of Sternotomy changes are noted. nonionic IV contrast, 5 mm thick sections acquired from the diaphragms to the symphysis. 5 mm thick coronal and sagittal reformats were acqui red. For radiation dose reduction, the following was used: automated exposure control, adjustment o f mA and/or kV according to patient size. COMPARISON: Prior abdomen pelvis CT, 09/11/2020. Correlation is also made with pelvic [facility], 12/30/2020, 09/11/2020. FINDINGS: Image quality: Excellent. ABDOMEN: Lung bases: Lung bases are clear. Heart size is normal. Solid organs: Liver is unremarkable. The spleen is minimally enlarged, measuring 13.2 cm AP. Gallblad landry is not seen. Biliary system is non dilated. Pancreas enhances normally. No adrenal nodules. Kidneys demonstrate normal size and enhancement, without hydronephrosis. Along the medial aspect of the left kidney, there is a water density cyst seen that measures 4.9 cm. Along the posterior inferio r aspect of the right kidney, there is focal cortical loss seen, as on series 3 image 39. Peritoneum and bowel: In this patient with this given history, scrutiny is given to the appendix. Th e appendix is well-seen and is normal. No focal right lower quadrant inflammatory changes are seen. Bowel loops demonstrate normal wall thickness and caliber. No free fluid or air. Nodes and vessels: No retroperitoneal or mesenteric adenopathy by size criteria. Aorta and inferior vena cava are normal in size. Miscellaneous: No ventral hernias. PELVIS: Genitourinary: Bladder wall thickness is normal. The uterus demonstrates an unremarkable appearance for age. No adnexal masses are seen. Miscellaneous: No inguinal hernias or adenopathy. Bones: No suspicious bony lesions. No vertebral body compression fractures. IMPRESSION: Normal appendix. No focal right lower quadrant inflammatory changes can be seen. An area of focal cortical loss can be seen involving the posterior inferior aspect of the right kidne y. Please correlate with a prior episode of infarction or infection. Incidental note is made of: Cholecystectomy Mild splenomegaly Simple appearing left renal cyst Note: No significant discrepancy from the preliminary report. Reviewed by: Margarito Berg MD on 12/30/2020 5:52 AM JOEL Approved by: Margarito Berg MD on 12/30/2020 5:52 AM JOEL Station ID: [id number]
--- NOTE | 2020-12-30 06:58 | Ultrasound Report ---
PROCEDURE: Pelvic w/Transvag+Doppler Ltd INDICATIONS: RLQ pain TECHNIQUE: Real-time scanning was performed of the pelvic organs, with image documentation. Additional endovagi nal scanning was necessary due to incomplete visualization of the adnexal and endometrial structures by transabdominal scanning. COMPARISON: Prior pelvic ultrasound, 09/11/2020. Correlation is also made with the [facility] abdomen pel vis CT 12/29/2020. FINDINGS: No pathologic free abdominal or pelvic fluid. Uterus: Uterus is normal in size at 8.5 x 4.2 x 5.5 cm. The endometrium measures 6 mm in combined t hickness. Ovaries: The right ovary measures 2.8 x 1.7 x 2.1 cm and the left ovary measures 2.8 x 1.8 x 2.4 cm. No significant ovarian abnormalities are seen. There are less than 12 follicles seen on each side. No adnexal masses are seen. Normal-appearing arterial and venous waveforms are confirmed to each ovary. IMPRESSION: Normal pelvic ultrasound, without a cause of right lower quadrant pain identified. The right ovary ap pears normal. Negative for ovarian torsion. Note: No significant discrepancy from the preliminary report. Reviewed by: Margarito Berg MD on 12/30/2020 5:57 AM [facility] Approved by: Margarito Berg MD on 12/30/2020 5:57 AM [facility] Station ID: [id number]
== END 2020-12-30 03:46 | disposition home or self-care (01) ==
LOC: ED 22:38
DX: R10.2 Pelvic and perineal pain (principal); R10.31 Right lower quadrant pain; R11.0 Nausea
CPT/HCPCS: 36415; 74177; 76830; 76856; 80053; 81003; 81025; 83690; 85025; 93976; 96374; 96375; 99284; J1170; Q9967; 81001; 87086

== ENCOUNTER 2021-02-24 16:41 | Emergency (ER) | payer MEDICAID ==
[2021-02-24 16:56] VITALS: BP 145/94
[2021-02-24 17:07] LABS: RAPID STREP SCREEN Negative (Negative)
--- NOTE | 2021-02-24 17:28 | ED Physician Documentation ---
PD HPI URI - Stated complaint Stated Complaint: SORE THROAT - Chief complaint Chief Complaint: Heent - History obtained from History obtained from: Patient - History of Present Illness Timing - onset: Last night Timing duration: Days (1) Timing details: Abrupt onset, Still present Associated symptoms: Sore throat. No: Fever, Nasal congestion, Swollen nodes, Dry cough, Dyspnea Contributing factors: No: Sick contact, Unimmunized Similar symptoms before: Has not had sx before Recently seen: Not recently seen Review of Systems Constitutional: reports: Myalgias. denies: Fever, Chills Nose: denies: Rhinorrhea / runny nose, Congestion Throat: reports: Sore throat Respiratory: denies: Cough PD PAST MEDICAL HISTORY - Past Medical History Cardiovascular: Other Respiratory: None Neuro: Headaches Endocrine/Autoimmune: None GI: None MANAGER VALUATION: None : None HEENT: None Psych: None Musculoskeletal: None Derm: None - Past Surgical History Past Surgical History: Yes General: Cholecystectomy - Present Medications Home Medications: Ambulatory Orders Medication Instructions Recorded Confirmed HYDROcod/ACETAM 5/325 [Spring 5/325] 1 - 2 tablet PO Q6H PRN #14 tablet 12/30/20 - Allergies Allergies/Adverse Reactions: Allergies Allergy/AdvReac Type Severity Reaction Status Date / Time No Known Drug Allergies Allergy Verified 02/24/21 16:56 - Social History Does the pt smoke?: No Smoking Status: Never smoker Does the pt drink ETOH?: Yes Does the pt have substance abuse?: No - Immunizations Immunizations are current?: Yes - POLST Patient has POLST: No PD ED PE NORMAL - Vitals Vital signs reviewed: Yes - General General: Alert and oriented X 3, No acute distress, Well developed/nourished - HEENT HEENT: Ears normal, Moist mucous membranes. No: Pharynx benign (mild tonsillar redness. White spot right tonsil that is localized. No peritonsillar edema. Neck supple without adenopathy. ) - Neck Neck: Supple, no meningeal sign, No adenopathy Results - Vitals Vitals: Oxygen O2 Source Room air - Labs Labs: Microbiology 02/24/21 16:57 Group A Strep Throat Culture - Preliminary Throat CULTURE IN PROGRESS. RESULTS TO FOLLOW. Laboratory Tests 02/24/21 16:57 Group A Strep Rapid Negative PD MEDICAL DECISION MAKING - ED course Complexity details: reviewed results (negative rapid strep and low Centor criteria, so will await culture results. ), considered differential, d/w patient Departure - Departure Disposition: 01 Home, Self Care Clinical Impression: Acute pharyngitis Qualifiers: Pharyngitis/tonsillitis etiology: unspecified etiology Qualified Code(s): J02.9 - Acute pharyngitis, unspecified Condition: Stable Record reviewed to determine appropriate education?: Yes Instructions: ED Pharyngitis Viral Report Pending Follow-Up: Yanick Sterling MD [Primary Care Provider] - Comments: Your rapid strep test is negative. The culture of this will result in a couple of days and will picking tech on the strep test that can be missed by the rapid 1. However this is most likely to be viral or inflammatory. Stay well-hydrated. Tylenol ibuprofen as needed for fevers or pains. Diphenhydramine liquid can be useful for helping with throat pain as well. Talk with your work establishment if they want you off work pending the culture result. Otherwise usual handwashing and mask wearing etc. We will call you if the culture is positive in 2 days. Discharge Date/Time: 02/24/21 18:01
[2021-02-24] MEDS ORDERED: CHERRY SYRUP 10 ML UDC PO ONE (17:44)
[2021-02-24] MEDS ORDERED: diphenhydrAMINE ELIXIR 25 MG/10 ML UDC PO STA (17:44)
[2021-02-24] MEDS ORDERED: DEXAMETHASONE 10 MG/ML VIAL PO STA (17:44)
== END 2021-02-24 18:01 | disposition home or self-care (01) ==
LOC: ED 16:41
DX: J02.9 Acute pharyngitis, unspecified (principal)
CPT/HCPCS: 87070; 87430; 99283; A9270

== ENCOUNTER 2021-04-02 07:01 | Emergency (ER) | payer MEDICAID ==
--- NOTE | 2021-04-02 07:22 | ED Physician Documentation ---
PD HPI FEMALE - Stated complaint Stated Complaint: PELVIC PX - Chief complaint Chief Complaint: Abd Pain - History obtained from History obtained from: Patient - History of Present Illness Timing - onset: Yesterday Timing - duration: Days (1/2) Timing - details: Gradual onset, Still present Associated symptoms: Pelvic pain, Vaginal bleeding (passed small clot this morning per vaginal.). 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 Had 2 abd CTs in past months to eval and normal appendix both times.) Recently seen: Emergency Dept Review of Systems Constitutional: denies: Fever, Chills Nose: denies: Rhinorrhea / runny nose, Congestion Throat: denies: Sore throat Respiratory: denies: Cough GI: reports: Abdominal Pain, Nausea. denies: Vomiting, Constipation, Diarrhea : reports: LMP (2 weeks ago), Vaginal bleeding. 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: None, Ovarian cysts : None HEENT: None Psych: Anxiety Musculoskeletal: None Derm: None - Past Surgical History Past Surgical History: Yes General: Cholecystectomy - Present Medications Home Medications: Ambulatory Orders Medication Instructions Recorded Confirmed HYDROcod/ACETAM 5/325 [[place] 5/325] 1 ea PO Q6H PRN #18 tablet 04/02/21 Ibuprofen [Motrin] 600 mg PO TID PRN #25 tab 04/02/21 Ondansetron Odt [Zofran] 4 mg TL Q6H PRN #10 tablet 04/02/21 - Allergies Allergies/Adverse Reactions: Allergies Allergy/AdvReac Type Severity Reaction Status Date / Time No Known Drug Allergies Allergy Verified 04/02/21 07:12 - Social History Does the pt smoke?: No Smoking Status: Never smoker Does the pt drink ETOH?: No Does the pt have substance abuse?: No - Immunizations Immunizations are current?: Yes - POLST Patient has POLST: No PD ED PE NORMAL - Vitals Vital signs reviewed: Yes - General General: Alert and oriented X 3, No acute distress, Well developed/nourished - Neck Neck: Supple, no meningeal sign, No adenopathy - Cardiac Cardiac: RRR, No murmur - Respiratory Respiratory: Clear bilaterally - Abdomen Abdomen: Normal bowel sounds, Soft, Non distended, No organomegaly, Other (right lower abd tender with local guarding suprapubic area, lower than McBurneys. No percussion tenderness. ) - Female Female : Deferred - Back Back: No CVA TTP - Derm Derm: Normal color, Warm and dry, No rash Results - Vitals Vitals: Vital Signs - 24 hr 04/02/21 04/02/21 04/02/21 07:12 07:41 09:15 Temperature 36.5 C Heart Rate 89 84 85 Respiratory 18 18 17 Rate Blood Pressure 134/87 H 115/84 H 118/85 H O2 Saturation 100 96 99 04/02/21 04/02/21 11:00 12:11 Temperature 36.4 C L Heart Rate 68 79 Respiratory 19 12 Rate Blood Pressure 117/68 125/93 H O2 Saturation 98 97 Oxygen O2 Source Room air - Labs Labs: Laboratory Tests 04/02/21 04/02/21 04/02/21 07:30 07:30 07:30 WBC 9.3 RBC 4.86 Hgb 14.6 Hct 43.7 MCV 89.9 MCH 30.0 MCHC 33.4 RDW 12.6 Plt Count 255 MPV 9.7 Neut # (Auto) 6.5 Lymph # (Auto) 1.9 [place] # (Auto) 0.4 Eos # (Auto) 0.3 Baso # (Auto) 0.0 Absolute Nucleated RBC 0.00 Nucleated RBC % 0.0 Sodium 141 Potassium 4.1 Chloride 107 Carbon Dioxide 25 Anion Gap 9.0 BUN 12 Creatinine 0.8 Estimated GFR (MDRD) 85 L Glucose 105 H Calcium 9.0 Total Bilirubin 0.6 AST 15 ALT 12 Alkaline Phosphatase 76 Total Protein 7.1 Albumin 3.6 Globulin 3.5 Albumin/Globulin Ratio 1.0 Lipase 25 Urine Color YELLOW Urine Clarity CLEAR Urine pH 7.0 Ur Specific [place] 1.020 Urine Protein NEGATIVE Urine Glucose (UA) NEGATIVE Urine Ketones NEGATIVE Urine Occult Blood NEGATIVE Urine Nitrite NEGATIVE Urine Bilirubin NEGATIVE Urine Urobilinogen 0.2 (NORMAL) Ur Leukocyte Esterase TRACE H Urine RBC 0-5 Urine WBC 0-3 Ur Squamous Epith Cells FEW Squamous Urine Bacteria Few Ur Microscopic Review INDICATED Urine Culture Comments INDICATED Urine HCG, Qual NEGATIVE - Rads (name of study) pelvic U/S Radiology: Prelim report reviewed (right ovarian cyst without bleeding/free fluid. Normal blood flow.), See rad report PD MEDICAL DECISION MAKING - ED course Complexity details: reviewed results (given right cyst and normal WBC, with tenderness being suprapubic and not McBurneys per se, shared decision to not eval for appendix. ), considered differential, d/w patient Departure - Departure Disposition: Home, Self Care Clinical Impression: Pelvic pain Ovarian cyst Qualifiers: Laterality: right Qualified Code(s): N83.201 - Unspecified ovarian cyst, right side Condition: Stable Record reviewed to determine appropriate education?: Yes Instructions: ED Cyst Ovarian, ED Pelvic Pain [facility] Follow-Up: Yanick Sterling MD [Primary Care Provider] - Marsha Jaimes MD [Provider Admit Priv/Credential] - Prescriptions: Ibuprofen [Motrin] 600 mg PO TID PRN #25 tab PRN Reason: Pain HYDROcod/ACETAM 5/325 [[place] 5/325] 1 ea PO Q6H PRN #18 tablet PRN Reason: Pain Ondansetron Odt [Zofran] 4 mg TL Q6H PRN #10 tablet PRN Reason: Nausea / Vomiting Comments: Your urine test and test are normal. Your blood count is normal without any elevation of the white count so not really indicating infectious cause. Ultrasound showed an ovarian cyst on that side without any signs of bleeding or rupture. There is good blood flow to the ovary. At this point I presume it is the cyst that is causing pain. Other considerati ons could to be endometrial. At this point I am less suspicious of appendicitis given the normal white count in that it is not been your appendix the last couple of times as well. That said if you have increasing pain, fever, diarrhea vomiting or other concerns then return to the ER for further evaluation and reconsideration of the cause. Otherwise we will treated with anti-inflammatories, antiemetic, pain medicine. Call the women's health clinic let them know that you are seen in the ER and we suggested a sooner follow-up for further evaluation. Discharge Date/Time: 04/02/21 12:19
[2021-04-02] MEDS ORDERED: HYDROmorphone 1 MG/ML CARPUJECT IVP STA ×2 (07:31→09:24)
[2021-04-02] MEDS ORDERED: ONDANSETRON 4 MG/2 ML VIAL IVP STA (07:31)
[2021-04-02] MEDS ORDERED: SODIUM CHLORIDE 0.9% 1,000 ML IV STA (07:31)
[2021-04-02] MEDS ORDERED: KETOROLAC 30 MG/ML VIAL IVP STA (07:31)
[2021-04-02 07:46] LABS: BASOPHILS % (AUTO) 0.4 %; EOSINOPHILS # (AUTO) 0.3 10^3/uL (0.0-0.7); EOSINOPHILS % (AUTO) 2.7 %; HCT - HEMATOCRIT 43.7 % (37.0-47.0); HGB - HEMOGLOBIN 14.6 g/dL (12.0-16.0); LYMPHOCYTES # (AUTO) 1.9 10^3/uL (1.5-3.5); LYMPHOCYTES % (AUTO) 20.9 %; MEAN CORPUSCULAR HGB CONC 33.4 g/dL (32.0-36.0); MEAN CORPUSCULAR VOLUME 89.9 fL (81.0-99.0); MEAN PLATELET VOLUME 9.7 fL (7.9-10.8); MONOCYTES # (AUTO) 0.4 10^3/uL (0.0-1.0); MONOCYTES % (AUTO) 4.7 %; NEUTROPHILS # (AUTO) 6.5 10^3/uL (1.5-6.6); NEUTROPHILS % (AUTO) 70.5 %; PLT - PLATELET COUNT 255 10^3/uL (130-450); RED BLOOD COUNT 4.86 10^6/uL (4.20-5.40); RED CELL DISTRIBUTION WIDTH 12.6 % (12.0-15.0); WHITE BLOOD COUNT 9.3 x10^3/uL (4.8-10.8)
[2021-04-02 07:47] LABS: BILIRUBIN,URINE NEGATIVE (NEGATIVE); GLUCOSE, URINE (UA) NEGATIVE (NEGATIVE); KETONES,URINE (UA) NEGATIVE (NEGATIVE); LEUKOCYTE ESTERASE, URINE TRACE (NEGATIVE); NITRITE,URINE NEGATIVE (NEGATIVE); OCCULT BLOOD,URINE NEGATIVE (NEGATIVE); PROTEIN,URINE NEGATIVE (NEGATIVE); UROBILINOGEN,URINE 0.2 (NORMAL) E.U./dL (NORMAL)
[2021-04-02 07:50] LABS: CLARITY,URINE CLEAR (CLEAR); HCG UR QUAL NEGATIVE
[2021-04-02 08:01] LABS: ALBUMIN 3.6 g/dL (3.2-5.5); BILIRUBIN,TOTAL 0.6 mg/dL (0.2-1.0); CREATININE 0.8 mg/dL (0.4-1.0); POTASSIUM 4.1 mmol/L (3.5-5.0); RBC,URINE 0-5 /HPF (0-5); TOTAL PROTEIN 7.1 g/dL (6.7-8.2); WBC,URINE 0-3 /HPF (0-5)
[2021-04-02 08:02] LABS: BACTERIA,URINE Few /HPF (None Seen); SQUAMOUS EPITHELIAL CELL,UR FEW Squamous (<= Few)
--- NOTE | 2021-04-02 10:59 | Ultrasound Report ---
PROCEDURE: Pelvic w/Transvag+Doppler Comp INDICATIONS: pelvic pain, R; prior cysts TECHNIQUE: Real-time scanning was performed of the pelvic organs, with image documentation. Additional endovagi nal scanning was necessary due to incomplete visualization of the adnexal and endometrial structures by transabdominal scanning. COMPARISON: Pelvic ultrasound 12/30/2020 FINDINGS: No pathologic free abdominal or pelvic fluid. Uterus: Uterus is normal in size at 9.0 x 4.1 x 5.5 cm. The endometrium measures 6.2 mm in combined thickness. Minimal fluid is noted within the endocervical canal. Ovaries: Right ovary measures 4.3 x 3.8 x 3.3 cm, volume 28.1 cc. Is a focus of decreased echogenici ty within the right ovary measuring 3.4 x 3.0 x 3.2 cm. Left ovary measures 3.5 x 1.5 x 2.5 cm, volum e 6.9 cc. IMPRESSION: 1. Right ovarian cyst. This is new compared to prior exam. Reviewed by: Raquel Serrano MD on 04/02/2021 10:58 AM PDT Approved by: Raquel Serrano MD on 04/02/2021 10:58 AM PDT Station ID: [id number]
[2021-04-02 12:12] VITALS: BP 125/93
== END 2021-04-02 12:19 | disposition home or self-care (01) ==
LOC: ED 07:01
DX: N83.201 Unspecified ovarian cyst, right side (principal)
CPT/HCPCS: 36415; 76830; 76856; 80053; 81001; 81025; 83690; 85025; 87086; 93975; 96361; 96374; 96375; 96376; 99283; J1170; 81003

== ENCOUNTER 2021-07-14 09:05 | Emergency (ER) | payer MEDICAID ==
[2021-07-14 09:41] LABS: BILIRUBIN,URINE NEGATIVE (NEGATIVE); GLUCOSE, URINE (UA) NEGATIVE (NEGATIVE); KETONES,URINE (UA) NEGATIVE (NEGATIVE); LEUKOCYTE ESTERASE, URINE NEGATIVE (NEGATIVE); NITRITE,URINE NEGATIVE (NEGATIVE); OCCULT BLOOD,URINE NEGATIVE (NEGATIVE); PROTEIN,URINE NEGATIVE (NEGATIVE); UROBILINOGEN,URINE 0.2 (NORMAL) E.U./dL (NORMAL)
[2021-07-14 09:44] LABS: CLARITY,URINE CLEAR (CLEAR); HCG UR QUAL NEGATIVE
[2021-07-14 10:07] LABS: BASOPHILS # (AUTO) 0.1 10^3/uL (0.0-0.1); BASOPHILS % (AUTO) 0.5 %; EOSINOPHILS # (AUTO) 0.4 10^3/uL (0.0-0.7); EOSINOPHILS % (AUTO) 3.8 %; HCT - HEMATOCRIT 44.7 % (37.0-47.0); HGB - HEMOGLOBIN 14.9 g/dL (12.0-16.0); LYMPHOCYTES # (AUTO) 2.2 10^3/uL (1.5-3.5); MEAN CORPUSCULAR HEMOGLOBIN 30.2 pg (27.0-31.0); MEAN CORPUSCULAR HGB CONC 33.3 g/dL (32.0-36.0); MEAN CORPUSCULAR VOLUME 90.5 fL (81.0-99.0); MEAN PLATELET VOLUME 9.9 fL (7.9-10.8); MONOCYTES # (AUTO) 0.6 10^3/uL (0.0-1.0); MONOCYTES % (AUTO) 5.8 %; NEUTROPHILS # (AUTO) 6.6 10^3/uL (1.5-6.6); NEUTROPHILS % (AUTO) 66.9 %; PLT - PLATELET COUNT 265 10^3/uL (130-450); RED BLOOD COUNT 4.94 10^6/uL (4.20-5.40); RED CELL DISTRIBUTION WIDTH 12.2 % (12.0-15.0); WHITE BLOOD COUNT 9.8 x10^3/uL (4.8-10.8)
[2021-07-14 10:16] LABS: ALBUMIN 3.7 g/dL (3.2-5.5); ALBUMIN/GLOBULIN RATIO 1.1 (1.0-2.2); BILIRUBIN,TOTAL 0.6 mg/dL (0.2-1.0); CALCIUM 8.6 mg/dL (8.5-10.3); CREATININE 0.9 mg/dL (0.4-1.0)
[2021-07-14] MEDS ORDERED: HYDROmorphone 1 MG/ML CARPUJECT IVP STA (10:35)
[2021-07-14] MEDS ORDERED: SODIUM CHLORIDE 0.9% 1,000 ML IV STA (10:35)
[2021-07-14] MEDS ORDERED: KETOROLAC 30 MG/ML VIAL IVP STA (10:35)
--- NOTE | 2021-07-14 11:43 | Ultrasound Report ---
PROCEDURE: Abdomen Limited INDICATIONS: ruq pn/cholecystectomy/duct stone? TECHNIQUE: Real-time focused scanning was performed of the right upper quadrant with image documentation. COMPARISON: CT abdomen pelvis 12/29/2020 FINDINGS: The liver is normal in size without focal hepatic lesions identified. The gallbladder is surgically absent. No intra or extra hepatic biliary ductal dilatation. The common bile duct measures up to 6 mm. The pancreas appears unremarkable sonographically. Right kidney measures 10.8 cm. No hydronephrosis. IMPRESSION: 1. No acute sonographic abnormality identified in the right upper quadrant. Specifically, no biliary ductal dilatation. Reviewed by: Trevin Marley MD on 07/14/2021 10:41 AM [facility] Approved by: Trevin Marley MD on 07/14/2021 10:41 AM [facility] Station ID: [id number]
--- NOTE | 2021-07-14 12:02 | ED Physician Documentation ---
PD HPI ABD PAIN - Stated complaint Stated Complaint: RT SIDE PX - Chief complaint Chief Complaint: Abd Pain - History obtained from History obtained from: Patient - Additional information Additional information: Patient comes emergency department chief complaint of right upper quadrant abdominal pain that started 2 days ago. She states that it feels just like when she had a stone in her duct before having her gallbladder removed. The patient states that the pain has been fairly consistent, and started after she ate some meatballs. She denies any other abdominal problems. She is otherwise healthy. She has been nauseated but not vomiting. No other complaints at this time. Review of Systems Ten Systems: 10 systems reviewed and negative Constitutional: reports: Reviewed and negative Eyes: reports: Reviewed and negative Ears: reports: Reviewed and negative Nose: reports: Reviewed and negative Throat: reports: Reviewed and negative Cardiac: reports: Reviewed and negative Respiratory: reports: Reviewed and negative GI: reports: Abdominal Pain, Nausea : reports: Reviewed and negative Skin: reports: Reviewed and negative Musculoskeletal: reports: Reviewed and negative Neurologic: reports: Reviewed and negative Psychiatric: reports: Reviewed and negative Endocrine: reports: Reviewed and negative Immunocompromised: reports: Reviewed and negative PD PAST MEDICAL HISTORY - Past Medical History Past Medical History: Yes Cardiovascular: Other Respiratory: None Neuro: Headaches Endocrine/Autoimmune: None GI: None 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: Ovarian cysts : None HEENT: None Psych: Anxiety Musculoskeletal: None Derm: None - Past Surgical History Past Surgical History: Yes General: Cholecystectomy - Present Medications Home Medications: Ambulatory Orders Medication Instructions Recorded Confirmed HYDROcod/ACETAM 5/325 [Jackson 5/325] 1 ea PO Q6H PRN #18 tablet 04/02/21 Ibuprofen [Motrin] 600 mg PO TID PRN #25 tab 04/02/21 Ondansetron Odt [Zofran] 4 mg TL Q6H PRN #10 tablet 04/02/21 HYDROcod/ACETAM 5/325 [Jackson 5/325] 1 - 2 tablet PO Q6H PRN #14 tablet 07/14/21 Ondansetron Odt [Zofran] 4 mg TL Q6H PRN #10 tablet 07/14/21 - Allergies Allergies/Adverse Reactions: Allergies Allergy/AdvReac Type Severity Reaction Status Date / Time No Known Drug Allergies Allergy Verified 07/14/21 09:12 - Social History Does the pt smoke?: No Smoking Status: Never smoker Does the pt drink ETOH?: No Does the pt have substance abuse?: No - Immunizations Immunizations are current?: Yes - POLST Patient has POLST: No PD ED PE NORMAL - Vitals Vital signs reviewed: Yes - General General: Alert and oriented X 3, No acute distress (Patient appears moderately uncomfortable but no apparent distress otherwise.), Well developed/nourished - HEENT HEENT: Atraumatic, PERRL, EOMI, Moist mucous membranes - Neck Neck: Supple, no meningeal sign - Cardiac Cardiac: RRR, No murmur, Strong equal pulses - Respiratory Respiratory: No respiratory distress, Clear bilaterally - Abdomen Abdomen: Soft, Non distended, Other (Point tenderness right upper quadrant, no rebound or guarding.) - Back Back: No CVA TTP - Derm Derm: Normal color, Warm and dry, No rash - Extremities Extremities: No deformity, No edema, No calf tenderness / cord - Neuro Neuro: Alert and oriented X 3, laborer laboratory 2-12 intact, Normal speech, Other (Grossly intact) - Psych Psych: Normal mood, Normal affect Results - Vitals Vitals: Vital Signs - 24 hr 07/14/21 07/14/21 07/14/21 09:08 09:48 10:55 Temperature 36.2 C L Heart Rate 99 71 Respiratory 17 17 17 Rate Blood Pressure 139/99 H 123/87 H O2 Saturation 99 99 100 Oxygen O2 Source Room air - Labs Labs: Laboratory Tests 07/14/21 07/14/21 07/14/21 09:21 09:44 09:44 WBC 9.8 RBC 4.94 Hgb 14.9 Hct 44.7 MCV 90.5 MCH 30.2 MCHC 33.3 RDW 12.2 Plt Count 265 MPV 9.9 Neut # (Auto) 6.6 Lymph # (Auto) 2.2 Gaines # (Auto) 0.6 Eos # (Auto) 0.4 Baso # (Auto) 0.1 Absolute Nucleated RBC 0.00 Nucleated RBC % 0.0 Sodium 136 Potassium 4.0 Chloride 102 Carbon Dioxide 25 Anion Gap 9.0 BUN 10 Creatinine 0.9 Estimated GFR (MDRD) 74 L Glucose 105 H Calcium 8.6 Total Bilirubin 0.6 AST 19 ALT 17 Alkaline Phosphatase 87 Total Protein 7.0 Albumin 3.7 Globulin 3.3 Albumin/Globulin Ratio 1.1 Lipase 24 Urine Color YELLOW Urine Clarity CLEAR Urine pH 6.0 Ur Specific [place] 1.015 Urine Protein NEGATIVE Urine Glucose (UA) NEGATIVE Urine Ketones NEGATIVE Urine Occult Blood NEGATIVE Urine Nitrite NEGATIVE Urine Bilirubin NEGATIVE Urine Urobilinogen 0.2 (NORMAL) Ur Leukocyte Esterase NEGATIVE Ur Microscopic Review NOT INDICATED Urine Culture Comments NOT INDICATED Urine HCG, Qual NEGATIVE - Rads (name of study) Abdominal ultrasound, right upper quadrant Radiology: Final report received, EMP read indepedently, See rad report (6 mm common bile duct without evidence of ductal stone.) PD MEDICAL DECISION MAKING - ED course Complexity details: reviewed results, re-evaluated patient, considered differential, d/w patient ED course: Patient's laboratory studies were unremarkable, and she was treated symptomatically with IV Dilaudid and Toradol, as well as Zofran. She was also given some fluids. Ultrasound of the right upper quadrant was performed and showed a normal caliber common bile duct. I discussed with the patient that she has no LFT elevations and her anatomy post surgically appears normal in the right upper quadrant. We have discussed that if she continues to have this pain, she will need to talk to her primary doctor about being referred to GI to see if any further evaluation needs to be made. At this point, the patient stable for discharge home. Departure - Departure Disposition: 01 Home, Self Care Clinical Impression: Abdominal pain Qualifiers: Abdominal location: right upper quadrant Qualified Code(s): R10.11 - Right upper quadrant pain Condition: Stable Instructions: ED Abdominal Pain Female Non-Specific Abdominal Pain Prescriptions: HYDROcod/ACETAM 5/325 [Jackson 5/325] 1 - 2 tablet PO Q6H PRN #14 tablet PRN Reason: Pain Ondansetron Odt [Zofran] 4 mg TL Q6H PRN #10 tablet PRN Reason: Nausea / Vomiting Comments: Your labs show no liver enzyme elevations, and your ultrasound looks good. There is no evidence of a stone blocking your common bile duct and the common bile duct is of normal caliber. It is not clear what is causing your pain at this time, but you will need to follow-up with your primary doctor to discuss with the need referral to a women's swim coach. You may take your pain and nausea medications prescribed, as needed. Your prescriptions have been electronically transmitted to [facility] in [place].
[2021-07-14] MEDS ORDERED: ONDANSETRON 4 MG/2 ML VIAL IVP STA (12:26)
[2021-07-14 12:43] VITALS: BP 113/72
== END 2021-07-14 12:46 | disposition home or self-care (01) ==
LOC: ED 09:05
DX: R10.11 Right upper quadrant pain (principal)
CPT/HCPCS: 36415; 76705; 80053; 81003; 81025; 83690; 85025; 96374; 96375; 99283; 99284; J1170; 81001; 87086

== ENCOUNTER 2021-07-16 15:29 | Outpatient (CLI) | payer MEDICAID ==
--- NOTE | 2021-07-16 19:58 | Ultrasound Report ---
PROCEDURE: Pelvic w/Transvaginal INDICATIONS: RIGHT SIDE OVARIAN CYST TECHNIQUE: Real-time scanning was performed of the pelvic organs, with image documentation. Additional endovagi nal scanning was necessary due to incomplete visualization of the adnexal and endometrial structures by transabdominal scanning. COMPARISON: 04/02/2021, 12/30/2020. FINDINGS: No pathologic free abdominal or pelvic fluid. Uterus: Anteverted uterus is normal in size at 7.5 x 3.9 x 5.2 cm. Myometrium is heterogeneous in ech otexture. The endometrium measures 7.6 mm in combined thickness. Ovaries: Right ovary measures 3.4 x 2.6 x 3.4 cm in size with a volume of 15.4 cc. Left ovary measur es 3.5 x 2.3 x 3 cm in size with a volume of 12.8 cc. No solid-appearing ovarian lesion. Dominant fol licle is noted in right ovary measures 1.1 x 1.1 x 1.2 cm in size. Previously noted right ovarian cys t is no longer seen on this study. IMPRESSION: 1. Previously described right ovarian cyst is no longer seen. Dominant follicle in right ovary as abo ve. No solid-appearing ovarian lesion. 2. Heterogeneous myometrial echotexture. No discrete uterine fibroid. No gross endometrial mass or fl uid. Reviewed by: Francesco Oseguera MD on 07/16/2021 7:57 PM PST Approved by: Francesco Oseguera MD on 07/16/2021 7:57 PM PST Station ID: [id number]
== END 2021-07-16 15:30 | disposition home or self-care (01) ==
LOC: DI 15:29
PROVIDERS: ATTEND Obstetrics & Gynecology
DX: N83.291 Other ovarian cyst, right side (principal); R93.89 Abnormal findings on diagnostic imaging of other specified body structures

== ENCOUNTER 2021-07-30 08:00 | Outpatient (CLI) | payer MEDICAID | END 2021-07-30 23:59 | LOC: LAB.N 08:00 | PROVIDERS: ATTEND Physician Assistant | DX: J01.90 Acute sinusitis, unspecified (principal); Z20.822 Contact with and (suspected) exposure to COVID-19 ==

== ENCOUNTER 2021-10-13 18:05 | Emergency (ER) | payer MEDICAID ==
[2021-10-13 18:21] LABS: BASOPHILS # (AUTO) 0.1 10^3/uL (0.0-0.1); BASOPHILS % (AUTO) 0.6 %; EOSINOPHILS # (AUTO) 0.5 10^3/uL (0.0-0.7); EOSINOPHILS % (AUTO) 4.2 %; HCT - HEMATOCRIT 47.6 % (37.0-47.0); HGB - HEMOGLOBIN 16.4 g/dL (12.0-16.0); LYMPHOCYTES # (AUTO) 3.2 10^3/uL (1.5-3.5); LYMPHOCYTES % (AUTO) 26.2 %; MEAN CORPUSCULAR HEMOGLOBIN 29.9 pg (27.0-31.0); MEAN CORPUSCULAR HGB CONC 34.5 g/dL (32.0-36.0); MEAN CORPUSCULAR VOLUME 86.7 fL (81.0-99.0); MEAN PLATELET VOLUME 9.7 fL (7.9-10.8); MONOCYTES # (AUTO) 0.8 10^3/uL (0.0-1.0); MONOCYTES % (AUTO) 6.2 %; NEUTROPHILS # (AUTO) 7.6 10^3/uL (1.5-6.6); NEUTROPHILS % (AUTO) 62.1 %; PLT - PLATELET COUNT 311 10^3/uL (130-450); RED BLOOD COUNT 5.49 10^6/uL (4.20-5.40); RED CELL DISTRIBUTION WIDTH 12.5 % (12.0-15.0); WHITE BLOOD COUNT 12.3 x10^3/uL (4.8-10.8)
--- NOTE | 2021-10-13 18:28 | XRAY Report ---
PROCEDURE: Chest 1 View X-Ray INDICATIONS: Chest Pain TECHNIQUE: One view of the chest was acquired. COMPARISON: None. FINDINGS: Surgical changes and devices: None. Lungs and pleura: No pleural effusions or pneumothorax. Lungs are clear. Mediastinum: Mediastinal contours appear normal. Heart size is normal. Bones and chest wall: No suspicious bony lesions. Overlying soft tissues appear unremarkable. IMPRESSION: 1. No acute cardiopulmonary disease. Reviewed by: Trevin Marley MD on 10/13/2021 6:[address] [facility] Approved by: Trevin Marley MD on 10/13/2021 6:[address] [facility] Station ID: [id number]
[2021-10-13] MEDS ORDERED: HYDROmorphone 1 MG/ML CARPUJECT IVP STA (18:29)
--- NOTE | 2021-10-13 18:29 | ED Physician Documentation ---
PD HPI ABD PAIN - Stated complaint Stated Complaint: CP - Chief complaint Chief Complaint: Abd Pain - History obtained from History obtained from: Patient - Additional information Additional information: 31-year-old woman with chronic splenomegaly for unknown reasons. Her large dog jumped up and hit her in the left upper quadrant midday today and then she developed progressive bloating and left upper quadrant pain since then. There is no associated shortness of breath. Pain is now severe. 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 : None HEENT: None Psych: Anxiety Musculoskeletal: None Derm: None - Past Surgical History Past Surgical History: Yes General: Cholecystectomy - Present Medications Home Medications: Ambulatory Orders Medication Instructions Recorded Confirmed HYDROcod/ACETAM 5/325 [[place] 5/325] 1 - 2 tablet PO Q6H PRN #14 tablet 07/14/21 Ondansetron Odt [Zofran] 4 mg TL Q6H PRN #10 tablet 07/14/21 - Allergies Allergies/Adverse Reactions: Allergies Allergy/AdvReac Type Severity Reaction Status Date / Time No Known Drug Allergies Allergy Verified 10/13/21 18:19 - Social History Does the pt smoke?: No Smoking Status: Never smoker Does the pt drink ETOH?: No Does the pt have substance abuse?: No - Immunizations Immunizations are current?: Yes - POLST Patient has POLST: No PD ED PE NORMAL - Vitals Vital signs reviewed: Yes - General General: Alert and oriented X 3, Other (She appears uncomfortable with modest resting tachycardia. No hypotension.) - HEENT HEENT: PERRL, EOMI - Neck Neck: Supple, no meningeal sign, No bony TTP - Cardiac Cardiac: No murmur (Tachycardic but regular without murmur) - Respiratory Respiratory: No respiratory distress, Clear bilaterally - Abdomen Abdomen: Normal bowel sounds, Soft, Other (Diffusely tender on the left side without surgical signs. Fast scan done on initial evaluation was without free fluid.) - Back Back: No CVA TTP, No spinal TTP - Derm Derm: Normal color, Warm and dry - Extremities Extremities: No edema, No calf tenderness / cord - Neuro Neuro: Alert and oriented X 3, Normal speech Results - Vitals Vitals: Vital Signs - 24 hr 10/13/21 10/13/21 10/13/21 18:10 18:30 18:49 Temperature 37 C Heart Rate 120 H 101 H 106 H Respiratory 22 21 12 Rate Blood Pressure 137/100 H 125/95 H 137/105 H O2 Saturation 100 100 100 10/13/21 10/13/21 10/13/21 19:11 19:30 20:00 Temperature Heart Rate 96 99 99 Respiratory 21 20 16 Rate Blood Pressure 125/94 H 129/98 H 123/88 H O2 Saturation 100 99 99 Oxygen O2 Source Room air - EKG (time done) 1812 Rate: Rate (enter#) (105) Rhythm: Sinus tachycardia [place]: Normal Intervals: Normal [place] QRS: Normal Ischemia: Normal ST segments - Labs Labs: Laboratory Tests 10/13/21 10/13/21 10/13/21 18:15 18:15 18:15 WBC 12.3 H RBC 5.49 H Hgb 16.4 H Hct 47.6 H MCV 86.7 MCH 29.9 MCHC 34.5 RDW 12.5 Plt Count 311 MPV 9.7 Neut # (Auto) 7.6 H Lymph # (Auto) 3.2 [place] # (Auto) 0.8 Eos # (Auto) 0.5 Baso # (Auto) 0.1 Absolute Nucleated RBC 0.00 Nucleated RBC % 0.0 PT INR Sodium 138 Potassium 3.2 L Chloride 105 Carbon Dioxide 22 Anion Gap 11.0 BUN 7 Creatinine 1.1 H Estimated GFR (MDRD) 58 L Glucose 104 H Calcium 10.1 Total Bilirubin 0.8 AST 49 H ALT 76 H Alkaline Phosphatase 86 Troponin I High Sens 3.2 Total Protein 8.2 Albumin 4.9 Globulin 3.3 Albumin/Globulin Ratio 1.5 Lipase 30 Serum HCG, Qual Blood Type Blood Type Recheck Antibody Screen 10/13/21 10/13/21 10/13/21 18:15 18:15 18:25 WBC RBC Hgb Hct MCV MCH MCHC RDW Plt Count MPV Neut # (Auto) Lymph # (Auto) [place] # (Auto) Eos # (Auto) Baso # (Auto) Absolute Nucleated RBC Nucleated RBC % PT 11.6 INR 1.0 Sodium Potassium Chloride Carbon Dioxide Anion Gap BUN Creatinine Estimated GFR (MDRD) Glucose Calcium Total Bilirubin AST ALT Alkaline Phosphatase Troponin I High Sens Total Protein Albumin Globulin Albumin/Globulin Ratio Lipase Serum HCG, Qual NEGATIVE Blood Type Blood Type Recheck O POSITIVE Antibody Screen 10/13/21 18:25 WBC RBC Hgb Hct MCV MCH MCHC RDW Plt Count MPV Neut # (Auto) Lymph # (Auto) [place] # (Auto) Eos # (Auto) Baso # (Auto) Absolute Nucleated RBC Nucleated RBC % PT INR Sodium Potassium Chloride Carbon Dioxide Anion Gap BUN Creatinine Estimated GFR (MDRD) Glucose Calcium Total Bilirubin AST ALT Alkaline Phosphatase Troponin I High Sens Total Protein Albumin Globulin Albumin/Globulin Ratio Lipase Serum HCG, Qual Blood Type O POSITIVE Blood Type Recheck Antibody Screen NEGATIVE PD MEDICAL DECISION MAKING - ED course ED course: 31-year-old woman with known chronic splenomegaly presents after a left upper quadrant injury with increased pain. Very worried about potential for splenic injury. Fast scan on initial evaluation was negative and blood work demonstrates what is now becoming kind of a chronic mild leukocytosis but now evidence of polycythemia. CT also negative for evidence of splenic injury and discussed with her that it may be reasonable to have her PCP consider referral for hematology consultation. She declined pain medications after the first pain medication including declining prescriptions. We discussed the potential finding of colitis on CT. She really does not have any symptoms referable for that so suspect it is inconsequential. Departure - Departure Disposition: 01 Home, Self Care Clinical Impression: Splenomegaly Abdominal pain Qualifiers: Abdominal location: left upper quadrant Qualified Code(s): R10.12 - Left upper quadrant pain Abdominal wall contusion Qualifiers: Encounter type: initial encounter Qualified Code(s): S30.1XXA - Contusion of abdominal wall, initial encounter Condition: Good Record reviewed to determine appropriate education?: Yes Instructions: ED Abdominal Pain Female Non-Specific Abdominal Pain Comments: As discussed, given the chronically abnormal lab work and enlarged spleen, might be reasonable to talk with your doctor about a referral to a operations manager station. Thankfully though there is no evidence of splenic injury on CT or ultrasound. There was may be some mild colonic inflammation, but this would not require any specific therapy. Return for new or worsening symptoms. Tylenol or ibuprofen as needed for pain. Do call your primary care physician tomorrow for follow-up appointment. Discharge Date/Time: 10/13/21 20:11
[2021-10-13 18:40] LABS: ALBUMIN 4.9 g/dL (3.2-5.5); ALBUMIN/GLOBULIN RATIO 1.5 (1.0-2.2); BILIRUBIN,TOTAL 0.8 mg/dL (0.2-1.0); CALCIUM 10.1 mg/dL (8.5-10.3); CREATININE 1.1 mg/dL (0.4-1.0); POTASSIUM 3.2 mmol/L (3.5-5.0); TOTAL PROTEIN 8.2 g/dL (6.7-8.2)
[2021-10-13] MEDS ORDERED: IOVERSOL 320 100 ML VIAL IVP ONE ×2 (18:44→19:08)
[2021-10-13 18:48] LABS: HCG,QUALITATIVE BLOOD NEGATIVE
[2021-10-13 19:32] LABS: PT - PROTHROMBIN TIME 11.6 secs (9.9-12.6)
--- NOTE | 2021-10-13 19:41 | CT Report ---
PROCEDURE: Abdomen/Pelvis W INDICATIONS: LUQ injury, Known splenomegaly CONTRAST: IV CONTRAST: Optiray 320 ml: 100 PO CONTRAST: *NO PO CONTRAST TECHNIQUE: After the administration of intravenous contrast, 5 mm thick sections acquired from the diaphragms to the symphysis. 5 mm thick coronal and sagittal reformats were acquired. For radiation dose reducti on, the following was used: automated exposure control, adjustment of mA and/or kV according to joann ent size. COMPARISON: CT abdomen pelvis 12/29/2020. FINDINGS: Image quality: Excellent. ABDOMEN: Lung bases: There is minimal dependent atelectasis bilaterally. Heart size is normal. Solid organs: There is mild focal fatty infiltration in the anterior left hepatic lobe along the falc iform ligament. The gallbladder is surgically absent. There is minimal fluid dilatation likely relate d to sequelae of prior cholecystectomy. The spleen is enlarged, measuring up to 14.2 cm. No splenic lacerations or perisplenic hematoma. Pancreas enhances normally without peripancreatic fat stranding or fluid collections. No adrenal nodules. Kidneys demonstrate no hydronephrosis. There is a large l eft renal cortical cyst redemonstrated. Focal cortical thinning is again noted posteriorly in the rig ht kidney likely representing sequelae of prior infection, infarct, or trauma. Peritoneum and bowel: Small bowel loops demonstrate normal wall thickness and caliber. The appendix i s normal in appearance. There is mild segmental wall thickening of the distal descending, transverse, descending, and sigmoid colon. No free fluid or air. Nodes and vessels: No retroperitoneal or mesenteric adenopathy by size criteria. Aorta and inferior vena cava are normal in size. Miscellaneous: No ventral hernias. PELVIS: Genitourinary: Bladder wall thickness is normal. There is mild enlargement of the right ovary with i t thin-walled peripherally enhancing cyst measuring up to 1.8 cm likely representing a physiologic cy st. An IUD appears to locate an appropriate position within the uterus. Miscellaneous: No inguinal hernias or adenopathy. Bones: No suspicious bony lesions. No vertebral body compression fractures. IMPRESSION: 1. No definite acute traumatic abnormality within the abdomen or pelvis. Specifically, no evidence of splenic laceration or hematomas. 2. Nonspecific mild splenomegaly demonstrated. 3. Mild segmental wall thickening of the distal colon as described suggestive of a mild infectious or inflammatory colitis. Reviewed by: Trevin Marley MD on 10/13/2021 7:40 PM PST Approved by: Trevin Marley MD on 10/13/2021 7:40 PM PST Station ID: [id number]
[2021-10-13 20:03] VITALS: BP 123/88
== END 2021-10-13 20:11 | disposition home or self-care (01) ==
LOC: ED 18:05
DX: S30.1XXA Contusion of abdominal wall, initial encounter (principal); W54.1XXA Struck by dog, initial encounter; Y93.89 Activity, other specified; R16.1 Splenomegaly, not elsewhere classified; R10.12 Left upper quadrant pain
CPT/HCPCS: 36415; 71045; 74177; 80053; 83690; 84484; 84703; 85025; 85610; 86850; 86900; 86901; 93005; 96374; 99284; J1170; Q9967

== ENCOUNTER 2022-02-05 19:55 | Emergency (ER) | payer BC, OTHER ==
[2022-02-05] MEDS ORDERED: KETOROLAC 15 MG/ML VIAL IVP STA (20:29)
[2022-02-05] MEDS ORDERED: MORPHINE 2 MG/ML CARPUJECT IVP STA (20:29)
--- NOTE | 2022-02-05 20:32 | ED Physician Documentation ---
History of Present Illness - Stated complaint Stated Complaint: SOA,TROUBLE BREATHING - Chief complaint Chief Complaint: Resp - History obtained from History obtained from: Patient - Additonal information Additional information: 31-year-old woman with history of polycythemia started to develop sore throat last night with runny nose and chills. Also a cough which is occasionally productive of brown sputum. Today she developed left-sided pleuritic chest pain and increased cough and shortness of breath. She notes 2 weeks of right calf pain. No personal history of thromboembolic disease. She is on a Mirena IUD for control. No recent travel. No hemoptysis. 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 : None HEENT: None Psych: Anxiety Musculoskeletal: None Derm: None - Past Surgical History Past Surgical History: Yes General: Cholecystectomy - Present Medications Home Medications: Ambulatory Orders Medication Instructions Recorded Confirmed HYDROcod/ACETAM 5/325 [[place] 5/325] 1 - 2 tablet PO Q6H PRN #14 tablet 07/14/21 Ondansetron Odt [Zofran] 4 mg TL Q6H PRN #10 tablet 07/14/21 - Allergies Allergies/Adverse Reactions: Allergies Allergy/AdvReac Type Severity Reaction Status Date / Time No Known Drug Allergies Allergy Verified 02/05/22 20:06 - Social History Does the pt smoke?: No Smoking Status: Never smoker Does the pt drink ETOH?: No Does the pt have substance abuse?: No - Immunizations Immunizations are current?: Yes - POLST Patient has POLST: No PD ED PE NORMAL - Vitals Vital signs reviewed: Yes - General General: Alert and oriented X 3, Other (She appears uncomfortable and is splinting her breaths) - HEENT HEENT: PERRL, EOMI - Neck Neck: Supple, no meningeal sign, No bony TTP - Cardiac Cardiac: RRR, No murmur - Respiratory Respiratory: No respiratory distress, Clear bilaterally - Abdomen Abdomen: Non tender - Back Back: No CVA TTP, No spinal TTP - Derm Derm: Normal color, Warm and dry - Extremities Extremities: No edema, No calf tenderness / cord (Minimal right) - Neuro Neuro: Alert and oriented X 3, Normal speech Results - Vitals Vitals: Vital Signs - 24 hr 02/05/22 02/05/22 20:01 21:47 Temperature 36.9 C 36.8 C Heart Rate 90 88 Respiratory 14 15 Rate Blood Pressure 136/99 H 132/88 H O2 Saturation 100 100 Oxygen O2 Source Room air - EKG (time done) 2020 Rate: Rate (enter#) (87) Rhythm: NSR [place]: Normal Intervals: Normal [place] QRS: Normal Ischemia: Normal ST segments - Labs Labs: Laboratory Tests 02/05/22 02/05/22 02/05/22 20:40 20:43 20:43 WBC 10.7 RBC 4.71 Hgb 14.2 Hct 42.6 MCV 90.4 MCH 30.1 MCHC 33.3 RDW 12.5 Plt Count 262 MPV 9.5 Neut # (Auto) 6.4 Lymph # (Auto) 3.1 [place] # (Auto) 0.8 Eos # (Auto) 0.4 Baso # (Auto) 0.1 Absolute Nucleated RBC 0.00 Nucleated RBC % 0.0 D-Dimer Sodium 138 Potassium 3.3 L Chloride 105 Carbon Dioxide 24 Anion Gap 9.0 BUN 10 Creatinine 0.9 Estimated GFR (MDRD) 74 L Glucose 83 Calcium 9.4 Total Bilirubin 0.4 AST 16 ALT 13 Alkaline Phosphatase 73 Troponin I High Sens Total Protein 7.3 Albumin 4.1 Globulin 3.2 Albumin/Globulin Ratio 1.3 Lipase 33 Nasal Adenovirus (PCR) NOT DETECTED Nasal B. parapertussis DNA (PCR) NOT DETECTED Nasal Coronavir 229E PCR NOT DETECTED Nasal Coronavir HKU1 PCR NOT DETECTED Nasal Coronavir NL63 PCR NOT DETECTED Nasal Coronavir OC43 PCR NOT DETECTED Nasal Enterovir/Rhinovir PCR NOT DETECTED Nasal Influenza B PCR NOT DETECTED Nasal Influenza A PCR NOT DETECTED Nasal Parainfluen 1 PCR NOT DETECTED Nasal Parainfluen 2 PCR NOT DETECTED Nasal Parainfluen 3 PCR NOT DETECTED Nasal Parainfluen 4 PCR NOT DETECTED Nasal RSV (PCR) NOT DETECTED Nasal B.pertussis DNA PCR NOT DETECTED Nasal C.pneumoniae (PCR) NOT DETECTED Jun Human Metapneumo PCR NOT DETECTED Nasal M.pneumoniae (PCR) NOT DETECTED Nasal SARS-CoV-2 (PCR) NOT DETECTED 02/05/22 02/05/22 20:43 20:43 WBC RBC Hgb Hct MCV MCH MCHC RDW Plt Count MPV Neut # (Auto) Lymph # (Auto) [place] # (Auto) Eos # (Auto) Baso # (Auto) Absolute Nucleated RBC Nucleated RBC % D-Dimer < 200.0 L Sodium Potassium Chloride Carbon Dioxide Anion Gap BUN Creatinine Estimated GFR (MDRD) Glucose Calcium Total Bilirubin AST ALT Alkaline Phosphatase Troponin I High Sens < 2.3 L Total Protein Albumin Globulin Albumin/Globulin Ratio Lipase Nasal Adenovirus (PCR) Nasal B. parapertussis DNA (PCR) Nasal Coronavir 229E PCR Nasal Coronavir HKU1 PCR Nasal Coronavir NL63 PCR Nasal Coronavir OC43 PCR Nasal Enterovir/Rhinovir PCR Nasal Influenza B PCR Nasal Influenza A PCR Nasal Parainfluen 1 PCR Nasal Parainfluen 2 PCR Nasal Parainfluen 3 PCR Nasal Parainfluen 4 PCR Nasal RSV (PCR) Nasal B.pertussis DNA PCR Nasal C.pneumoniae (PCR) Jun Human Metapneumo PCR Nasal M.pneumoniae (PCR) Nasal SARS-CoV-2 (PCR) - Rads (name of study) Single view chest x-ray is unremarkable Radiology: EMP read contemporaneously PD MEDICAL DECISION MAKING - ED course Complexity details: reviewed results (neg dimer, EKG, CXR), re-evaluated patient (somewhat better p toradol/morphine), considered differential (pleurisy, PE, TX, PTX), d/w patient Departure - Departure Disposition: 01 Home, Self Care Clinical Impression: Viral syndrome, Pleurisy Condition: Stable Record reviewed to determine appropriate education?: Yes Instructions: ED Chest Pain Pleurisy, ED Viral Syndrome Comments: You are seen today for a viral syndrome and now you have painful pleurisy. You should take ibuprofen, 800 mg every 6 hours for the next couple of days and then twice a day for as long as it lasts. Return if worsening. Work-up demonstrates a normal CBC, negative D-dimer, normal heart labs and EKG and a negative chest x-ray. Forms: Activity restrictions Discharge Date/Time: 02/05/22 21:58
[2022-02-05 20:48] LABS: BASOPHILS # (AUTO) 0.1 10^3/uL (0.0-0.1); BASOPHILS % (AUTO) 0.7 %; EOSINOPHILS # (AUTO) 0.4 10^3/uL (0.0-0.7); EOSINOPHILS % (AUTO) 3.4 %; HCT - HEMATOCRIT 42.6 % (37.0-47.0); HGB - HEMOGLOBIN 14.2 g/dL (12.0-16.0); LYMPHOCYTES # (AUTO) 3.1 10^3/uL (1.5-3.5); MEAN CORPUSCULAR HEMOGLOBIN 30.1 pg (27.0-31.0); MEAN CORPUSCULAR HGB CONC 33.3 g/dL (32.0-36.0); MEAN CORPUSCULAR VOLUME 90.4 fL (81.0-99.0); MEAN PLATELET VOLUME 9.5 fL (7.9-10.8); MONOCYTES # (AUTO) 0.8 10^3/uL (0.0-1.0); MONOCYTES % (AUTO) 7.1 %; NEUTROPHILS # (AUTO) 6.4 10^3/uL (1.5-6.6); NEUTROPHILS % (AUTO) 59.2 %; PLT - PLATELET COUNT 262 10^3/uL (130-450); RED BLOOD COUNT 4.71 10^6/uL (4.20-5.40); RED CELL DISTRIBUTION WIDTH 12.5 % (12.0-15.0); WHITE BLOOD COUNT 10.7 x10^3/uL (4.8-10.8)
--- NOTE | 2022-02-05 20:48 | XRAY Report ---
PROCEDURE: Chest 1 View X-Ray INDICATIONS: Chest Pain TECHNIQUE: One view of the chest was acquired. COMPARISON: Chest x-ray one view, 10/13/2021. FINDINGS: Surgical changes and devices: None. Lungs and pleura: No pleural effusions or pneumothorax. Lungs are clear. Mediastinum: Mediastinal contours appear normal. Heart size is normal. Bones and chest wall: No suspicious bony lesions. Overlying soft tissues appear unremarkable. IMPRESSION: No acute cardiopulmonary disease. Reviewed by: Aman Henderson MD on 02/05/2022 8:47 PM PDT Approved by: Aman Henderson MD on 02/05/2022 8:47 PM PDT Station ID: [id number]
[2022-02-05 21:03] LABS: ALBUMIN 4.1 g/dL (3.2-5.5); ALBUMIN/GLOBULIN RATIO 1.3 (1.0-2.2); BILIRUBIN,TOTAL 0.4 mg/dL (0.2-1.0); CALCIUM 9.4 mg/dL (8.5-10.3); CREATININE 0.9 mg/dL (0.4-1.0); POTASSIUM 3.3 mmol/L (3.5-5.0); TOTAL PROTEIN 7.3 g/dL (6.7-8.2)
[2022-02-05] MEDS ORDERED: HYDROcod/ACET 5/325 Prepack 4 PO STA (21:34)
[2022-02-05 21:40] LABS: B. PARAPERTUSSIS- RESP PCR PAN NOT DETECTED; B. PERTUSSIS- RESP PCR PANEL NOT DETECTED; C. PNEUMONIAE- RESP PCR PANEL NOT DETECTED; CORONAVIRUS 229E-RESP PCR NOT DETECTED; CORONAVIRUS HKU1-RESP PCR NOT DETECTED; CORONAVIRUS NL63-RESP PCR NOT DETECTED; CORONAVIRUS OC43-RESP PCR NOT DETECTED; HUMAN METAPNEUMOVIRUS NOT DETECTED; INFLUENZA A- RESP PCR PANEL NOT DETECTED; INFLUENZA B - RESP PCR PANEL NOT DETECTED; M. PNEUMONIAE- RESP PCR PANEL NOT DETECTED; PARAINFLUENZA VIRUS 1 NOT DETECTED; PARAINFLUENZA VIRUS 2 NOT DETECTED; PARAINFLUENZA VIRUS 3 NOT DETECTED; PARAINFLUENZA VIRUS 4 NOT DETECTED; RHINOVIRUS/ENTEROVIRUS NOT DETECTED; RSV- RESP PCR PANEL NOT DETECTED; SARS-CoV-2 -RESP PCR PANEL NOT DETECTED
[2022-02-05 21:48] VITALS: BP 132/88
== END 2022-02-05 21:58 | disposition home or self-care (01) ==
LOC: ED 19:55
DX: B34.9 Viral infection, unspecified (principal); R09.1 Pleurisy; Z20.822 Contact with and (suspected) exposure to COVID-19
CPT/HCPCS: 36415; 80053; 83690; 84484; 85025; 85379; 87633; 93005; 96374; 96375; 99284

== ENCOUNTER 2022-11-04 08:39 | Emergency (ER) | payer BC, OTHER ==
--- NOTE | 2022-11-04 09:09 | ED Physician Documentation ---
PD HPI CHEST PAIN - Stated complaint Stated Complaint: CHEST PX/SOA - Chief complaint Chief Complaint: Cardiac - History obtained from History obtained from: Patient - Additional information Additional information: 32-year-old woman with chronic fatigue and nerve pain in the right leg had congenital ASVD self resolving otherwise with no heart problems. She developed rapid heart rate, shortness of breath and anterior squeezing chest pain last night around 10 PM. She has chronic pain in the right leg which there is a new component to in the posterior thigh. She had COVID last month and is 12 weeks out from hysterectomy. 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 : None HEENT: None Psych: Anxiety Musculoskeletal: None Derm: None - Past Surgical History Past Surgical History: Yes General: Cholecystectomy - Present Medications Home Medications: Ambulatory Orders Medication Instructions Recorded Confirmed HYDROcod/ACETAM 5/325 [[place] 5/325] 1 - 2 tablet PO Q6H PRN #14 tablet 07/14/21 Ondansetron Odt [Zofran] 4 mg TL Q6H PRN #10 tablet 07/14/21 Amox/Clav 875/125 [Augmentin] 1 each PO Q12H #20 tablet 11/04/22 Doxycycline [Vibramycin] 100 mg PO BID #14 tablet 11/04/22 HYDROcod/ACETAM 5/325 [[place] 5/325] 1 - 2 tab PO Q6H PRN #10 tablet 11/04/22 - Allergies Allergies/Adverse Reactions: Allergies Allergy/AdvReac Type Severity Reaction Status Date / Time No Known Drug Allergies Allergy Verified 02/05/22 20:06 - Social History Does the pt smoke?: No Smoking Status: Never smoker Does the pt drink ETOH?: No Does the pt have substance abuse?: No - Immunizations Immunizations are current?: Yes - POLST Patient has POLST: No PD ED PE NORMAL - Vitals Vital signs reviewed: Yes - General General: Alert and oriented X 3, No acute distress - Neck Neck: Supple, no meningeal sign, No bony TTP - Cardiac Cardiac: RRR, No murmur - Respiratory Respiratory: No respiratory distress, Clear bilaterally - Abdomen Abdomen: Non tender - Extremities Extremities: No edema, No calf tenderness / cord - Neuro Neuro: Alert and oriented X 3, Normal speech Results - Vitals Vitals: Vital Signs - 24 hr 11/04/22 11/04/22 11/04/22 08:43 09:31 10:20 Temperature 36.5 C Heart Rate 115 H 97 96 Respiratory 18 18 18 Rate Blood Pressure 139/97 H 127/95 H 114/87 H O2 Saturation 100 99 97 11/04/22 11/04/22 11/04/22 11:15 11:32 12:27 Temperature Heart Rate 93 96 85 Respiratory 20 18 17 Rate Blood Pressure 100/79 109/72 101/76 O2 Saturation 96 97 98 Oxygen O2 Source Room air - EKG (time done) 0850 EKG releavant findings:: EKG personally interpreted by author of this note. Relevant findings are: Rate: Rate (enter#) (108) Rhythm: Sinus tachycardia [place]: Normal Intervals: Normal [place] QRS: Normal Ischemia: Normal ST segments - Labs Labs: Laboratory Tests 11/04/22 11/04/22 11/04/22 09:25 09:25 09:25 WBC 6.8 RBC 5.27 Hgb 15.7 Hct 47.3 H MCV 89.8 MCH 29.8 MCHC 33.2 RDW 12.3 Plt Count 260 MPV 9.7 Neut # (Auto) 4.1 Lymph # (Auto) 1.8 [place] # (Auto) 0.5 Eos # (Auto) 0.3 Baso # (Auto) 0.0 Absolute Nucleated RBC 0.00 Nucleated RBC % 0.0 D-Dimer 309.1 H Sodium 137 Potassium 3.9 Chloride 106 Carbon Dioxide 25 Anion Gap 6.0 BUN 10 Creatinine 0.8 Estimated GFR (MDRD) 84 L Glucose 89 Calcium 8.9 Total Bilirubin 0.3 AST 20 ALT 15 Alkaline Phosphatase 76 Troponin I High Sens Total Protein 7.0 Albumin 3.9 Globulin 3.1 Albumin/Globulin Ratio 1.3 11/04/22 09:25 WBC RBC Hgb Hct MCV MCH MCHC RDW Plt Count MPV Neut # (Auto) Lymph # (Auto) [place] # (Auto) Eos # (Auto) Baso # (Auto) Absolute Nucleated RBC Nucleated RBC % D-Dimer Sodium Potassium Chloride Carbon Dioxide Anion Gap BUN Creatinine Estimated GFR (MDRD) Glucose Calcium Total Bilirubin AST ALT Alkaline Phosphatase Troponin I High Sens < 2.3 L Total Protein Albumin Globulin Albumin/Globulin Ratio - Rads (name of study) Single view chest x-ray demonstrates NAD Relevant Findings:: Final report received, EMP independent interpretation of test CT PA- Relevant Findings:: Final report received, EMP independent interpretation of test PD Medical Decision Making - ED course ED course: 32-year-old woman with squeezing anterior chest pain. EKG is normal with normal troponin but positive D-dimer noting she has a couple of risk factors for PE including recent COVID and hysterectomy. This was followed by CT pulmonary angiogram which was negative for PE but did show mild right-sided pneumonia and this is treated with Augmentin and doxycycline. CBC reviewed and normal. D-dimer positive. CMP and troponin negative. Departure - Departure Disposition: 01 Home, Self Care Clinical Impression: Atypical chest pain Pneumonia Qualifiers: Pneumonia type: due to unspecified organism Laterality: right Lung location: upper lobe of lung Qualified Code(s): J18.9 - Pneumonia, unspecified organism Condition: Good Record reviewed to determine appropriate education?: Yes Instructions: Pneumonia Dc Prescriptions: Amox/Clav 875/125 [Augmentin] 1 each PO Q12H #20 tablet HYDROcod/ACETAM 5/325 [[place] 5/325] 1 - 2 tab PO Q6H PRN #10 tablet PRN Reason: Pain Doxycycline [Vibramycin] 100 mg PO BID #14 tablet Comments: I sent your prescription electronically to [facility] in [place]. You were seen today for chest pain, we did find a mild case of pneumonia on the CAT scan. No evidence of active heart disease or anything more serious. Call your doctor to arrange a follow-up appointment, make the next available appointment. In the interim, return anytime if worse or if new symptoms develop. I am prescribing a short course of narcotic pain medication for you. These are potentially dangerous and addictive medications that should be used carefully. These medications may constipate you. Take an [id number] stool softener (docusate) twice daily with plenty of water while taking these medications. If you go 24 hours without a bowel movement, take [id number] miralax, per package instructions. Do not drink or drive while taking these medications. If you received narcotic or sedating medications while in the emergency department, do not drive for 24 hours. Store this medication in a safe, secure place and out of reach of children. It is a violation of federal law to give or sell this medication to another person or to use in a manner other than prescribed. The ED will not refill narcotic prescriptions, including prescriptions lost or stolen. To dispose of unwanted medications: 1. [facility] at [address] in [place] has a medication drop box. They accept prescription medications (in pill form) Thursday through Thursday 9:00 a.m. to 5:00 p.m. 2. The [facility] [employer] accepts prescription medications (in pill form only) for disposal year round. Call for more information. 3. Contact the [facility] for the next [facility] sponsored prescription drug collection event. , [phone], or [phone]; Note that many narcotic pain relievers also contain Tylenol/acetaminophen. Please ensure that your total dose of acetaminophen from all sources does not exceed 3 g (3000 mg) per day. Forms: Activity restrictions Discharge Date/Time: 11/04/22 12:42
[2022-11-04 09:36] LABS: BASOPHILS % (AUTO) 0.6 %; EOSINOPHILS # (AUTO) 0.3 10^3/uL (0.0-0.7); EOSINOPHILS % (AUTO) 3.8 %; HCT - HEMATOCRIT 47.3 % (37.0-47.0); HGB - HEMOGLOBIN 15.7 g/dL (12.0-16.0); LYMPHOCYTES # (AUTO) 1.8 10^3/uL (1.5-3.5); MEAN CORPUSCULAR HEMOGLOBIN 29.8 pg (27.0-31.0); MEAN CORPUSCULAR HGB CONC 33.2 g/dL (32.0-36.0); MEAN CORPUSCULAR VOLUME 89.8 fL (81.0-99.0); MEAN PLATELET VOLUME 9.7 fL (7.9-10.8); MONOCYTES # (AUTO) 0.5 10^3/uL (0.0-1.0); MONOCYTES % (AUTO) 7.7 %; NEUTROPHILS # (AUTO) 4.1 10^3/uL (1.5-6.6); PLT - PLATELET COUNT 260 10^3/uL (130-450); RED BLOOD COUNT 5.27 10^6/uL (4.20-5.40); RED CELL DISTRIBUTION WIDTH 12.3 % (12.0-15.0); WHITE BLOOD COUNT 6.8 x10^3/uL (4.8-10.8)
[2022-11-04 09:58] LABS: ALBUMIN 3.9 g/dL (3.2-5.5); ALBUMIN/GLOBULIN RATIO 1.3 (1.0-2.2); BILIRUBIN,TOTAL 0.3 mg/dL (0.2-1.0); CALCIUM 8.9 mg/dL (8.5-10.3); CREATININE 0.8 mg/dL (0.4-1.0); POTASSIUM 3.9 mmol/L (3.5-5.0)
--- NOTE | 2022-11-04 10:00 | XRAY Report ---
PROCEDURE: Chest 1 View X-Ray INDICATIONS: cp TECHNIQUE: One view of the chest was acquired. COMPARISON: 09/07/2021 plain films. FINDINGS: Surgical changes and devices: None. Lungs and pleura: No pleural effusions or pneumothorax. Lungs are clear. Mediastinum: Mediastinal contours appear normal. Heart size is normal. Bones and chest wall: No suspicious bony lesions. Overlying soft tissues appear unremarkable. IMPRESSION: No acute process. Reviewed by: Yomi Ribeiro MD on 11/04/2022 9:58 AM PDT Approved by: Yomi Ribeiro MD on 11/04/2022 9:58 AM PDT Station ID: [id number]
[2022-11-04] MEDS ORDERED: KETOROLAC 15 MG/ML VIAL IVP STA (10:18)
[2022-11-04] MEDS ORDERED: iohexoL-300 100 ML VIAL ONE (10:31)
--- NOTE | 2022-11-04 11:33 | CT Report ---
Without PROCEDURE: ANGIO CHEST W/WO INDICATIONS: PE study for dyspnea CONTRAST: 80ml Omnipaque 300 TECHNIQUE: After the administration of intravenous contrast, 2 mm axial images were acquired from the pulmonary apices to the posterior costophrenic angles during the arterial phase. In addition, 1 mm lung kernel and 5 mm soft tissue kernel reconstructions were performed. 3-dimensional coronal oblique maximum int ensity projection (MIP) reformats, 8 mm axial MIP, and 5 mm coronal and sagittal MPR reformats were t hen performed through the thorax. For radiation dose reduction, the following was used: automated exp osure control, adjustment of mA and/or kV according to patient size. COMPARISON: None FINDINGS: Image quality: Excellent. Pulmonary arteries: Pulmonary arteries are normal in size, and demonstrate no intraluminal filling d efects to suggest central pulmonary embolism. Lungs and pleura: No suspicious nodules which require follow up. No pleural effusions. No pneumothora x. Branching, tree-in-bud nodules within the posterior right upper lobe. Mediastinum: Heart size is normal. No pericardial effusions. No mediastinal adenopathy by size criter ia. No large vessel abnormality. Chest wall and lower neck: Thyroid is unremarkable. No axillary or supraclavicular adenopathy by size . Bones: No aggressive osseous abnormality. Upper Abdomen: Fluid attenuating left renal cyst. IMPRESSION: 1.No pulmonary embolus. 2. Branching, tree-in-bud nodules within the posterior right upper lobe. In this age group, findings likely indicate respiratory bronchiolitis, either infectious or inflammatory, less likely aspiration. Reviewed by: Mick Jamison on 11/04/2022 11:32 AM PDT Approved by: Mick Jamison on 11/04/2022 11:32 AM PDT Station ID: [id number]
[2022-11-04] MEDS ORDERED: diphenhydrAMINE INJ 50 MG/ML VIAL IVP STA (11:40)
[2022-11-04] MEDS ORDERED: METOCLOPRAMIDE 10 MG/2 ML VIAL IVP STA (11:40)
[2022-11-04 12:27] VITALS: BP 101/76
[2022-11-04] MEDS ORDERED: DOXYCYCLINE 100 MG TABLET PO STA (12:33)
[2022-11-04] MEDS ORDERED: AMOX/CLAV 875 MG/125 MG TABLET PO STA (12:33)
[2022-11-04] MEDS ORDERED: iohexoL-300 100 ML VIAL IVP ONE (12:43)
== END 2022-11-04 12:42 | disposition home or self-care (01) ==
LOC: ED 08:39
DX: J18.9 Pneumonia, unspecified organism (principal); R07.89 Other chest pain
CPT/HCPCS: 36415; 80053; 84484; 85025; 85379; 93005; 96374; 96375; 99284

== ENCOUNTER 2023-06-15 16:00 | Emergency (ER) | payer OTHER ==
[2023-06-15] MEDS ORDERED: KETOROLAC 30 MG/ML VIAL IM STA (17:52)
--- NOTE | 2023-06-15 17:55 | ED Physician Documentation ---
History of Present Illness - Stated complaint Stated Complaint: BILAT LEG PX - Chief complaint Chief Complaint: Trauma Ext - Additonal information Additional information: 32-year-old female presents emergency department for evaluation of acute left knee abrasion injury as well as acute right hip pain. Patient reports that 4 days ago she was walking into her home, she slipped on her steps falling directly onto both knees however the right hip was splayed outwards. She developed an abrasion on her left knee which she is concerned is becoming infected but over time she has had persistent pain in the lateral side of the right hip. Reports tetanus is up-to-date. Review of Systems Constitutional: denies: Fever, Chills Throat: reports: Reviewed and negative Cardiac: reports: Reviewed and negative Respiratory: reports: Reviewed and negative Skin: reports: Abrasion (s) Musculoskeletal: reports: Joint pain PD PAST MEDICAL HISTORY - Past Medical History Past Medical History: Yes Cardiovascular: Other Respiratory: None Neuro: Headaches Endocrine/Autoimmune: None GI: None PACU RN: Ovarian cysts : None HEENT: None Psych: Anxiety Musculoskeletal: None Derm: None - Past Surgical History Past Surgical History: Yes General: Cholecystectomy - Present Medications Home Medications: Ambulatory Orders Medication Instructions Recorded Confirmed Gabapentin [Neurontin] 300 mg PO BID 06/15/23 06/15/23 Topiramate 50 mg PO DAILY 06/15/23 06/15/23 - Allergies Allergies/Adverse Reactions: Allergies Allergy/AdvReac Type Severity Reaction Status Date / Time No Known Drug Allergies Allergy Verified 06/15/23 16:24 - Social History Does the pt smoke?: No Smoking Status: Never smoker Does the pt drink ETOH?: No Does the pt have substance abuse?: No - Immunizations Immunizations are current?: Yes - POLST Patient has POLST: No PD ED PE NORMAL - General General: Alert and oriented X 3, No acute distress, Well developed/nourished - HEENT HEENT: Moist mucous membranes, Pharynx benign - Neck Neck: Supple, no meningeal sign - Cardiac Cardiac: RRR, No murmur - Respiratory Respiratory: No respiratory distress, Clear bilaterally - Derm Derm: Other (Abrasion just below the patella of the left knee without surrounding erythema or drainage. Abrasion itself has some yellow eschar but no other findings to suggest infection. Normal flexion extension of the knee.) - Extremities Extremities: Other (Full range of motion of the hip without malrotation or shortening. Tenderness is elicited with palpation of the lateral hip. No obvious deformity or ecchymosis noted.) - Neuro Neuro: Alert and oriented X 3 Eye Opening: Spontaneous Motor: Obeys Commands Verbal: Oriented GCS Score: 15 Results - Vitals Vitals: Vital Signs - 24 hr 06/15/23 16:19 Temperature 36.5 C Heart Rate 103 H Respiratory 15 Rate Blood Pressure 134/92 H O2 Saturation 100 Oxygen O2 Source Room air - Rads (name of study) right hip Relevant Findings:: Final report received (No acute bony abnormality.) PD Medical Decision Making - ED course Complexity details: d/w patient ED course: 32-year-old female here for an abrasion on her left knee and right hip pain after ground-level fall several days ago. The abrasion on the knee appears to be healing normally with some yellow eschar over the wound but no surrounding erythema or induration to suggest infection. Patient describes an injury in which her right hip was splayed outwards. She has been ambulatory on it. The x-ray shows no acute fracture. I suspect a hip strain. Patient was given a single dose of Toradol IM here in the ER with some improvement in pain. She will be discharged to continue close follow-up with her primary care providers. The usual emergent return precautions worsening symptoms was discussed. Departure - Departure Disposition: 01 Home, Self Care Clinical Impression: Abrasion, left knee, initial encounter Sprain of right hip Qualifiers: Encounter type: initial encounter Qualified Code(s): S73.101A - Unspecified sprain of right hip, initial encounter Condition: Stable Record reviewed to determine appropriate education?: Yes Comments: Crystal the abrasion on your left knee appears to be a deeper abrasion but it is healing as we would expect without any findings to suggest infection. I recommend you wash it daily in the shower with warm soap and water, pat dry and then apply any antibiotic ointment and a bandage. This abrasion will likely take 1 to 2 weeks to heal. The x-ray of your hip and pelvis do not show any broken bones. You most likely sprained your hip when you fell the other day. I would expect this to also get better over the next 1 to 2 weeks. You can continue Tylenol and gentle stretching. Return to the ER if you are having any new or worsening symptoms. Forms: PCP List
--- NOTE | 2023-06-15 18:13 | XRAY Report ---
PROCEDURE: Hip w/Pelvis 2-3V RT INDICATIONS: pain after fall TECHNIQUE: AP pelvis with lateral view(s) of the right hip(s). COMPARISON: None. FINDINGS: Bones: No fractures or dislocations. No suspicious bony lesions. Soft tissues: No suspicious soft tissue calcifications or masses. IMPRESSION: No acute bony abnormality. Reviewed by: Mick Jamison on 06/15/2023 6:11 PM [facility] Approved by: Mick Jamison on 06/15/2023 6:11 PM [facility] Station ID: [id number]
[2023-06-15 18:48] VITALS: BP 111/59; O2SAT 98
== END 2023-06-15 18:40 | disposition home or self-care (01) ==
LOC: ED 16:00
DX: S73.101A Unspecified sprain of right hip, initial encounter (principal); S80.212A Abrasion, left knee, initial encounter; W10.9XXA Fall (on) (from) unspecified stairs and steps, initial encounter; Y92.009 Unspecified place in unspecified non-institutional (private) residence as the place of occurrence of the external cause
CPT/HCPCS: 96372; 99283

== ENCOUNTER 2023-10-10 19:53 | Emergency (ER) | payer OTHER ==
[2023-10-10 20:45] LABS: BASOPHILS # (AUTO) 0.1 10^3/uL (0.0-0.1); BASOPHILS % (AUTO) 0.6 %; EOSINOPHILS # (AUTO) 0.4 10^3/uL (0.0-0.7); EOSINOPHILS % (AUTO) 3.6 %; HGB - HEMOGLOBIN 15.5 g/dL (12.0-16.0); LYMPHOCYTES # (AUTO) 3.4 10^3/uL (1.5-3.5); LYMPHOCYTES % (AUTO) 32.5 %; MEAN CORPUSCULAR HEMOGLOBIN 29.8 pg (27.0-31.0); MEAN CORPUSCULAR HGB CONC 33.7 g/dL (32.0-36.0); MEAN CORPUSCULAR VOLUME 88.3 fL (81.0-99.0); MEAN PLATELET VOLUME 9.8 fL (7.9-10.8); MONOCYTES # (AUTO) 0.6 10^3/uL (0.0-1.0); NEUTROPHILS # (AUTO) 5.9 10^3/uL (1.5-6.6); NEUTROPHILS % (AUTO) 56.7 %; PLT - PLATELET COUNT 278 10^3/uL (130-450); RED BLOOD COUNT 5.21 10^6/uL (4.20-5.40); RED CELL DISTRIBUTION WIDTH 12.6 % (12.0-15.0); WHITE BLOOD COUNT 10.3 x10^3/uL (4.8-10.8)
[2023-10-10 20:53] LABS: ALBUMIN 4.3 g/dL (3.2-5.5); ALBUMIN/GLOBULIN RATIO 1.5 (1.0-2.2); BILIRUBIN,TOTAL 0.5 mg/dL (0.2-1.0); CALCIUM 9.6 mg/dL (8.5-10.3); CREATININE 1.1 mg/dL (0.6-1.3); POTASSIUM 3.4 mmol/L (3.5-4.5); TOTAL PROTEIN 7.2 g/dL (6.4-8.9)
[2023-10-10] MEDS: SODIUM CHLORIDE 0.9% 1,000 ML IV STA (21:19)
[2023-10-10] MEDS: diphenhydrAMINE INJ 50 MG/ML VIAL IVP STA (21:19)
[2023-10-10] MEDS: METOCLOPRAMIDE 10 MG/2 ML VIAL IVP STA (21:19)
[2023-10-10 21:35] LABS: BILIRUBIN,URINE NEGATIVE (NEGATIVE); CLARITY,URINE CLEAR (CLEAR); GLUCOSE, URINE (UA) NEGATIVE (NEGATIVE); KETONES,URINE (UA) NEGATIVE (NEGATIVE); LEUKOCYTE ESTERASE, URINE NEGATIVE (NEGATIVE); NITRITE,URINE NEGATIVE (NEGATIVE); OCCULT BLOOD,URINE NEGATIVE (NEGATIVE); PROTEIN,URINE NEGATIVE (NEGATIVE); UROBILINOGEN,URINE 0.2 (NORMAL) E.U./dL (NORMAL)
[2023-10-10 21:37] LABS: HCG UR QUAL NEGATIVE
--- NOTE | 2023-10-10 22:17 | XRAY Report ---
PROCEDURE: Chest 1V INDICATIONS: CP TECHNIQUE: One view of the chest was acquired. COMPARISON: 11/04/2022 FINDINGS: Surgical changes and devices: None. Lungs and pleura: No pleural effusions or pneumothorax. Lungs are clear. Mediastinum: Mediastinal contours appear normal. Heart size is normal. Bones and chest wall: No suspicious bony lesions. Overlying soft tissues appear unremarkable. IMPRESSION: Normal single view chest. Reviewed by: Margarito Berg MD on 10/10/2023 9:16 PM [facility] Approved by: Margarito Berg MD on 10/10/2023 9:16 PM [facility] Station ID: [id number]
--- NOTE | 2023-10-10 22:18 | CT Report ---
PROCEDURE: Head WO INDICATIONS: worsening headache TECHNIQUE: Noncontrast 4.5 mm thick angled axial sections acquired from the foramen magnum to the vertex. For r adiation dose reduction, the following was used: automated exposure control, adjustment of mA and/or kV according to patient size. COMPARISON: 07/23/2020 FINDINGS: Image quality: There is streak artifact seen through the skull base. CSF spaces: Basal cisterns are patent. No extra-axial fluid collections. Ventricles are normal in size and shape. Brain: No midline shift. No intracranial masses or hemorrhage. Loja-white matter interface is norm al. Skull and face: Calvarium and visualized facial bones are intact, without suspicious lesions. Sinuses: Visualized sinuses and mastoids are clear. IMPRESSION: No intracranial hemorrhage is seen. No acute intracranial pathology. Reviewed by: Margarito Berg MD on 10/10/2023 9:17 PM [facility] Approved by: Margarito Berg MD on 10/10/2023 9:17 PM [facility] Station ID: [id number]
[2023-10-10] MEDS: KETOROLAC 30 MG/ML VIAL IVP STA (22:39)
[2023-10-10 23:08] VITALS: BP 106/76; O2SAT 98
--- NOTE | 2023-10-10 23:19 | ED Physician Documentation ---
PD HPI HEADACHE - Stated complaint Stated Complaint: CHEST PX/YUEN/BLURRY VISION - Chief complaint Chief Complaint: Neuro - History obtained from History obtained from: Patient - Additional information Additional information: Patient is a 33-year-old female with a history of migraines presenting for evaluation of nausea which has been present for the past 3 days and then developing chest pain yesterday as well as a headache today. Patient states that since yesterday morning she has had a burning and tightness in her chest. She thought it was indigestion. She has continued with the symptoms today. She has also developed a throbbing frontal headache. She states that her migraines are usually located on the right side. She does usually have blurry vision with her migraines which she states is also what she is having today and also is similar to when she has migraines. She does have Zofran at home and has tried [id number] medications for her headache without relief. No head injury or trauma. Denies that the pain is worse with standing or changing positions. Denies that chest pain is worse with exertion. No shortness of air. No history of PE or DVT. No history of hypertension, diabetes, hyperlipidemia or family history of early coronary artery disease. No leg swelling or pain. No abdominal symptoms. Denies concerns for . 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 : None HEENT: None Psych: Anxiety Musculoskeletal: None Derm: None - Past Surgical History Past Surgical History: Yes General: Cholecystectomy - Present Medications Home Medications: Ambulatory Orders Medication Instructions Recorded Confirmed Gabapentin [Neurontin] 300 mg PO BID 06/15/23 06/15/23 Topiramate 50 mg PO DAILY 06/15/23 06/15/23 - Allergies Allergies/Adverse Reactions: Allergies Allergy/AdvReac Type Severity Reaction Status Date / Time No Known Drug Allergies Allergy Verified 06/15/23 16:24 - Social History Does the pt smoke?: No Smoking Status: Never smoker Does the pt drink ETOH?: No Does the pt have substance abuse?: No - Immunizations Immunizations are current?: Yes - POLST Patient has POLST: No PD ED PE NORMAL - General General: Alert and oriented X 3, No acute distress, Well developed/nourished - HEENT HEENT: Atraumatic, PERRL, EOMI, Moist mucous membranes, Pharynx benign - Neck Neck: Supple, no meningeal sign, No bony TTP - Cardiac Cardiac: RRR, Strong equal pulses - Respiratory Respiratory: No respiratory distress, Clear bilaterally - Abdomen Abdomen: Normal bowel sounds, Soft, Non tender, Non distended - Derm Derm: Warm and dry - Extremities Extremities: No edema, No calf tenderness / cord - Neuro Neuro: Alert and oriented X 3, No motor deficit, No sensory deficit, Normal speech Eye Opening: Spontaneous Motor: Obeys Commands Verbal: Oriented GCS Score: 15 Results - Vitals Vitals: Vital Signs - 24 hr 10/10/23 10/10/23 10/10/23 20:05 20:35 23:00 Temperature 36.2 C L Heart Rate 96 92 76 Respiratory 18 18 12 Rate Blood Pressure 139/95 H 113/83 H 106/76 O2 Saturation 100 96 98 Oxygen O2 Source Room air - EKG (time done) 2013 EKG releavant findings:: EKG personally interpreted by author of this note. Relevant findings are: Rate 88, normal sinus rhythm, no STEMI, QTc 436 - Labs Labs: Laboratory Tests 10/10/23 10/10/23 10/10/23 20:24 20:24 20:24 WBC 10.3 RBC 5.21 Hgb 15.5 Hct 46.0 MCV 88.3 MCH 29.8 MCHC 33.7 RDW 12.6 Plt Count 278 MPV 9.8 Neut # (Auto) 5.9 Lymph # (Auto) 3.4 Harney # (Auto) 0.6 Eos # (Auto) 0.4 Baso # (Auto) 0.1 Absolute Nucleated RBC 0.00 Nucleated RBC % 0.0 Sodium 137 Potassium 3.4 L Chloride 107 Carbon Dioxide 24 Anion Gap 6.0 BUN 13 Creatinine 1.1 Estimated GFR (MDRD) 58 L Glucose 92 Calcium 9.6 Total Bilirubin 0.5 AST 12 ALT 9 L Alkaline Phosphatase 71 Troponin I High Sens < 2.3 L Total Protein 7.2 Albumin 4.3 Globulin 2.9 Albumin/Globulin Ratio 1.5 Lipase 39 Urine Color Urine Clarity Urine pH Ur Specific [place] Urine Protein Urine Glucose (UA) Urine Ketones Urine Occult Blood Urine Nitrite Urine Bilirubin Urine Urobilinogen Ur Leukocyte Esterase Ur Microscopic Review Urine Culture Comments Urine HCG, Qual 10/10/23 21:15 WBC RBC Hgb Hct MCV MCH MCHC RDW Plt Count MPV Neut # (Auto) Lymph # (Auto) Harney # (Auto) Eos # (Auto) Baso # (Auto) Absolute Nucleated RBC Nucleated RBC % Sodium Potassium Chloride Carbon Dioxide Anion Gap BUN Creatinine Estimated GFR (MDRD) Glucose Calcium Total Bilirubin AST ALT Alkaline Phosphatase Troponin I High Sens Total Protein Albumin Globulin Albumin/Globulin Ratio Lipase Urine Color LIGHT YELLOW Urine Clarity CLEAR Urine pH 7.0 Ur Specific [place] 1.010 Urine Protein NEGATIVE Urine Glucose (UA) NEGATIVE Urine Ketones NEGATIVE Urine Occult Blood NEGATIVE Urine Nitrite NEGATIVE Urine Bilirubin NEGATIVE Urine Urobilinogen 0.2 (NORMAL) Ur Leukocyte Esterase NEGATIVE Ur Microscopic Review NOT INDICATED Urine Culture Comments NOT INDICATED Urine HCG, Qual NEGATIVE PD Medical Decision Making - ED course Complexity details: reviewed results, re-evaluated patient, d/w patient ED course: Patient is a 33-year-old female presenting for evaluation of headache and chest pain. Vital signs are stable. EKG is reviewed and nonischemic. Has no known risk factors for coronary artery disease. CBC, chemistry and troponin were obtained and reviewed and without significant findings. Urine is negative for . PERC negative. Doubt dissection as pain is not migratory and has improved here. In regards to her headache she does have a history of migraines but states that this is in a different location and thus a CT of her head was obtained and reviewed and without abnormal findings. Chest x-ray is also clear. She is feeling better here after migraine cocktail with IV fluids, Reglan, Benadryl and Toradol. History does not suggest meningitis or subarachnoid hemorrhage.She is counseled on need for close follow-up with her primary care provider as well as concerning symptoms to return for. Departure - Departure Disposition: 01 Home, Self Care Clinical Impression: Headache, Chest pain Condition: Stable Instructions: ED Chest Pain Atypical Unkn Cause, ED Headache Migraine Comments: CAT scan of your brain as well as your chest x-ray do not show any abnormalities. Your blood testing is also reassuring and I do not see any signs of any heart problems. You are given medications for migraine which seems to have helped. I would recommend continued close follow-up with your primary care provider regarding your headache and chest pain today. Return to the ER with any worsening symptoms. Forms: PCP List Discharge Date/Time: 10/10/23 23:30
== END 2023-10-10 23:30 | disposition home or self-care (01) ==
LOC: ED 19:53
DX: R07.9 Chest pain, unspecified (principal); R51.9 Headache, unspecified; R11.0 Nausea
CPT/HCPCS: 36415; 70450; 71045; 80053; 81003; 81025; 83690; 84484; 85025; 93005; 96374; 96375; 99284; J1200; J2765; 81001; 87086

== ENCOUNTER 2024-04-13 09:27 | Emergency (ER) | payer OTHER ==
[2024-04-13 10:00] VITALS: O2SAT 99
[2024-04-13 10:13] LABS: BASOPHILS % (AUTO) 0.4 %; EOSINOPHILS # (AUTO) 0.2 10^3/uL (0.0-0.7); EOSINOPHILS % (AUTO) 2.6 %; HCT - HEMATOCRIT 47.1 % (37.0-47.0); HGB - HEMOGLOBIN 15.5 g/dL (12.0-16.0); LYMPHOCYTES % (AUTO) 23.8 %; MEAN CORPUSCULAR HEMOGLOBIN 29.8 pg (27.0-31.0); MEAN CORPUSCULAR HGB CONC 32.9 g/dL (32.0-36.0); MEAN CORPUSCULAR VOLUME 90.6 fL (81.0-99.0); MONOCYTES # (AUTO) 0.5 10^3/uL (0.0-1.0); MONOCYTES % (AUTO) 5.3 %; NEUTROPHILS # (AUTO) 5.7 10^3/uL (1.5-6.6); NEUTROPHILS % (AUTO) 67.3 %; PLT - PLATELET COUNT 246 10^3/uL (130-450); RED CELL DISTRIBUTION WIDTH 12.8 % (12.0-15.0); WHITE BLOOD COUNT 8.5 x10^3/uL (4.8-10.8)
[2024-04-13 10:31] LABS: ALBUMIN 4.2 g/dL (3.2-5.5); ALBUMIN/GLOBULIN RATIO 1.6 (1.0-2.2); BILIRUBIN,TOTAL 0.6 mg/dL (0.2-1.0); CALCIUM 9.1 mg/dL (8.5-10.3); TOTAL PROTEIN 6.9 g/dL (6.4-8.9)
[2024-04-13 11:01] LABS: BILIRUBIN,URINE NEGATIVE (NEGATIVE); GLUCOSE, URINE (UA) NEGATIVE (NEGATIVE); KETONES,URINE (UA) NEGATIVE (NEGATIVE); LEUKOCYTE ESTERASE, URINE NEGATIVE (NEGATIVE); NITRITE,URINE NEGATIVE (NEGATIVE); OCCULT BLOOD,URINE NEGATIVE (NEGATIVE); PROTEIN,URINE NEGATIVE (NEGATIVE); UROBILINOGEN,URINE 0.2 (NORMAL) E.U./dL (NORMAL)
[2024-04-13 11:03] LABS: CLARITY,URINE CLEAR (CLEAR); HCG UR QUAL NEGATIVE
--- NOTE | 2024-04-13 11:56 | ED Physician Documentation ---
History of Present Illness - Stated complaint Stated Complaint: N/V, ABD PX, GI BLEEDING - Chief complaint Chief Complaint: Abd Pain - Additonal information Additional information: 33-year-old female presents emergency department for constipation. History of cholecystectomy, chronic constipation, headaches. Patient says last regular bowel movement was about 5 days ago 2 to 3 days ago when she was starting to realize that she is getting constipated she took MiraLAX every hour for total of 12 hours without any success and then has been taking MiraLAX daily. She says that she started to feel very large ball in her rectum and she is noticing some small loose stool going around it but is unable to pass the actual ball of stool. She has been trying to digitally disimpact herself at home with no success and she is now starting to feel nausea and noticing some rectal bleeding. 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 : None HEENT: None Psych: Anxiety Musculoskeletal: None Derm: None - Past Surgical History Past Surgical History: Yes General: Cholecystectomy - Present Medications Home Medications: Ambulatory Orders Medication Instructions Recorded Confirmed Gabapentin [Neurontin] 300 mg PO BID 06/15/23 06/15/23 Topiramate 50 mg PO DAILY 06/15/23 06/15/23 - Allergies Allergies/Adverse Reactions: Allergies Allergy/AdvReac Type Severity Reaction Status Date / Time No Known Drug Allergies Allergy Verified 04/13/24 09:45 - Social History Does the pt smoke?: No Smoking Status: Never smoker Does the pt drink ETOH?: No Does the pt have substance abuse?: No - Immunizations Immunizations are current?: Yes - POLST Patient has POLST: No PD ED PE NORMAL - Vitals Vital signs reviewed: Yes - General General: Alert and oriented X 3, No acute distress, Well developed/nourished - Abdomen Abdomen: Normal bowel sounds, Soft, Non tender, Non distended, No organomegaly PD ED PE EXPANDED - Rectal Rectal: Normal Tone, Sound Mixer present (NICKI Parks). No: Hemorrhoid, Fissure Results - Vitals Vitals: Vital Signs - 24 hr 04/13/24 09:42 Temperature 36.5 C Heart Rate 95 Respiratory 20 Rate Blood Pressure 135/92 H O2 Saturation 99 Oxygen O2 Source Room air - Labs Labs: Laboratory Tests 04/13/24 04/13/24 04/13/24 09:47 10:07 10:07 WBC 8.5 RBC 5.20 Hgb 15.5 Hct 47.1 H MCV 90.6 MCH 29.8 MCHC 32.9 RDW 12.8 Plt Count 246 MPV 10.0 Neut # (Auto) 5.7 Lymph # (Auto) 2.0 [place] # (Auto) 0.5 Eos # (Auto) 0.2 Baso # (Auto) 0.0 Absolute Nucleated RBC 0.00 Nucleated RBC % 0.0 Sodium 139 Potassium 4.0 Chloride 108 Carbon Dioxide 27 Anion Gap 4.0 L BUN 7 Creatinine 1.0 Estimated GFR (MDRD) 64 L Glucose 86 Calcium 9.1 Total Bilirubin 0.6 AST 13 ALT 9 L Alkaline Phosphatase 61 Total Protein 6.9 Albumin 4.2 Globulin 2.7 Albumin/Globulin Ratio 1.6 Lipase 15 Urine Color DARK YELLOW Urine Clarity CLEAR Urine pH 6.0 Ur Specific Sophia 1.025 Urine Protein NEGATIVE Urine Glucose (UA) NEGATIVE Urine Ketones NEGATIVE Urine Occult Blood NEGATIVE Urine Nitrite NEGATIVE Urine Bilirubin NEGATIVE Urine Urobilinogen 0.2 (NORMAL) Ur Leukocyte Esterase NEGATIVE Ur Microscopic Review NOT INDICATED Urine Culture Comments NOT INDICATED Urine HCG, Qual NEGATIVE PD Medical Decision Making - ED course ED course: 33-year-old female presents emergency department for difficulty having a BM leading to obstipation. Patient says that she is been having some nausea she has had no emesis here no abdominal pain she says that she has been having some rectal bleeding at home. On my physical rectal exam with NICKI Parks present I was unable to see any rectal bleeding no hemorrhoids and she had normal rectal tone. Originally we were planning on doing a digital disimpaction but the stool burden was high enough that I was unable to disimpact her successfully. From there we decided to pursue a soapsuds enema and patient was able to successfully have a very large and complete bowel movement in the emergency department without any complications. Patient states that she is feeling entirely better and at this point in time patient is safe for discharge. Return precautions given patient told to follow-up with her primary care provider to let her know about today's ER visit. Departure - Departure Disposition: 01 Home, Self Care Clinical Impression: Obstipation Instructions: Constipation Comments: Thank you for trusting us with your care, we have evaluated you for your constipation. We were able to give you a soapsuds enema and you are able to successfully have multiple very large bowel movements. Please follow-up with your primary care provider for further evaluation for your ongoing constipation please come back to the ER if you are starting to have any nausea vomiting recurrent constipation, fevers or chills or any other concerning emergent symptoms. Please follow-up with your primary care provider to let them know about today's ER visit. Make sure that you are daily getting enough physical exercise and drinking enough water to prevent from recurrent constipation as well as eating a healthy well-balanced diet including plenty of veggies and fruit and fiber. Forms: PCP List
[2024-04-13 13:19] VITALS: BP 108/78
== END 2024-04-13 13:11 | disposition home or self-care (01) ==
LOC: ED 09:27
DX: K59.00 Constipation, unspecified (principal); Z79.899 Other long term (current) drug therapy
CPT/HCPCS: 36415; 80053; 81001; 81003; 81025; 83690; 85025; 87086; 99283